=== PATIENT | female | born 2000 | race Caucasian/White ===

== ENCOUNTER → 2021-09-04 08:14 | Outpatient (BNVA) | payer BC, MEDICAID, SELFPAY | PROVIDERS: Family Provider Physician Assistant; PCP Nurse Practitioner; Visit Provider Nurse Practitioner Women's Health | DX: N92.6 Irregular menstruation, unspecified (principal) | CPT/HCPCS: 81025 ==

== ENCOUNTER → 2021-10-08 09:15 | Outpatient (BNVA) | payer BC, MEDICAID, SELFPAY | PROVIDERS: Family Provider Physician Assistant; PCP Nurse Practitioner; Visit Provider Obstetrics & Gynecology | DX: Z34.90 Encounter for supervision of normal pregnancy, unspecified, unspecified trimester (principal) | CPT/HCPCS: 80307; 81000; 82950; 83036; 84443; 85025; 86592; 86762; 86803; 86850; 86900; 87086; 87340; 87491; 87591; 87661; 88175 ==

== ENCOUNTER → 2021-11-01 14:12 | Outpatient (BNVA) | payer BC, MEDICAID, SELFPAY | PROVIDERS: Family Provider Physician Assistant; PCP Nurse Practitioner; Visit Provider Obstetrics & Gynecology | DX: O09.899 Supervision of other high risk pregnancies, unspecified trimester (principal); Z3A.00 Weeks of gestation of pregnancy not specified | CPT/HCPCS: 81000 ==

== ENCOUNTER 2021-11-02 14:49 | Emergency (ER) | payer BC, MEDICAID, SELFPAY ==
[2021-11-02 15:01] VITALS: BP 146/75; PULSE 121; RESP 20; TEMP 38.4; O2SAT 99; BMI 44.3
--- NOTE | 2021-11-02 15:30 | W.ED.ABDPA2 ---
HPI - Abdominal Pain General: Chief Complaint: Abdominal Pain Stated Complaint: fever Time Seen by Provider: 11/02/21 15:05 Source: patient Mode of arrival: ambulatory Limitations: no limitations History of Present Illness: 21-year-old female presents with right-sided flank pain. Patient is 16 to 17 weeks . No dysuria urgency or frequency. No hematuria no vomiting or diarrhea. Patient did present with a temp of 112 which resolved after she had been here for a time during the course of their work-up no respiratory symptoms. MD elicited complaint: flank pain (R) Pertinent past history: other (Currently 16 to 17 weeks ) Onset (ago): hour(s) Location: R flank Severity: severe Quality: cramping Exacerbating factors: nothing Relieving factors: nothing Associated Symptoms: Reports GI cramping; Denies anorexia, belching, bloating, change in bowel habits, change in stool character, chills, coffee ground emesis, constipation, diarrhea, dyspepsia, dysuria, excessive flatus, fever(s), heartburn, hematochezia, hematuria, hematemesis, fecal incontinence, loose stools, melena, nausea, poor appetite, syncope and vomiting Review of Systems Const: Denies: fever(s) or chills ENMT: Denies: throat pain, ear or mastoid pain, nasal discharge or nasal congestion Card: Denies: syncope Resp: Denies: dyspnea, productive cough or non-productive cough GI: Reports: GI cramping; Denies: abdominal pain, nausea, vomiting, hematemesis, coffee ground emesis, heartburn, diarrhea, constipation, bloating, belching, excessive flatus, fecal incontinence, change in bowel habits, change in stool character, hematochezia or melena : Reports: flank pain; Denies: difficulty voiding, dysuria, urinary frequency, urinary urgency or hematuria Skin/Breast: Denies: rash or pruritus PFSH ED PFSH: Medical History No pertinent past medical history neghx: htn,dm,thyroid,dvt/pe PCP: [place] Surgical History No pertinent past surgical history Family History Family/Other Diabetes Paternal Aunt x5 Thyroid disease Paternal Aunt x5 Father Hypertension Denies family history of Colon cancer Ovarian cancer Heart disease Hypercholesteremia Breast cancer Uterine cancer Stroke Physical Exam Const: GENERAL APPEARANCE: cooperative and comfortable ORIENTATION/CONSCIOUSNESS: Yes awake, Yes oriented to person, Yes oriented to place and Yes oriented to time HENMT: COMMON NORMALS: normocephalic, atraumatic and hearing grossly normal bilaterally HEAD & SCALP: normocephalic and atraumatic Resp: COMMON NORMALS: normal respiratory effort, No retractions, No use of accessory muscles and clear to auscultation bilaterally AUSCULTATION: clear to auscultation bilaterally Cardio: COMMON NORMALS: regular rate, regular rhythm and No murmurs present (Cardio) RATE: regular rate RHYTHM: regular rhythm GI: COMMON NORMALS: No hepatosplenomegaly present AUSCULTATION: Yes normoactive bowel sounds PALPATION: Yes Tenderness to palpation present (GI) (Right flank), No Guarding due to palpation present (GI) and Yes No hepatosplenomegaly present : BLADDER/KIDNEY EXAM: Yes CVA tenderness on the right Back/Pelvis: GENERAL BACK: Yes CVA tenderness Extremity: COMMON NORMALS: normal to inspection, capillary refill normal, no clubbing, cyanosis or edema, no calf tenderness and no pedal edema Neuro: SENSORIUM/ORIENTATION: Yes oriented to person, Yes oriented to place and Yes oriented to time Skin: COMMON NORMALS: no rashes or lesions noted GENERAL SKIN EXAM: no rashes or lesions noted Course Vital Signs: Vital signs: Vital Signs Temperature 98.6 F 11/02/21 18:35 Pulse Rate 107 H 11/02/21 18:35 Respiratory Rate 18 11/02/21 18:35 Blood Pressure 129/73 11/02/21 18:35 Pulse Oximetry 100 11/02/21 18:35 MDM - Abdominal Pain Medical Decision Making Discussed with Dr. Casiano. Cultures done we will start on amoxicillin follow-up with Dr. Casiano in the next 1 to 2 days if symptoms worsen or change return to the emergency room. Medical Records I reviewed the patient's medical records. Lab Data I reviewed the patient's lab results. : 11/02/21 15:55 11/02/21 15:55 Labs/Radiology: Radiology Impressions Obstetrics Ultrasound 11/02/21 15:45 IMPRESSION: 1. Single viable intrauterine gestation with an estimated age of 17 weeks 1 day. Abdomen Ultrasound 11/02/21 16:25 IMPRESSION: 1. Mild hepatomegaly. 2. Borderline splenomegaly. Laboratory Results WBC 9.0 10^3/uL (4.0-10.0) 11/02/21 15:55 RBC 4.01 10^6/uL (4.1-5.3) L 11/02/21 15:55 Hgb 11.5 g/dL (11.5-15.3) 11/02/21 15:55 Hct 33.7 % (37.0-47.0) L 11/02/21 15:55 MCV 84.0 fl (81-99) 11/02/21 15:55 MCH 28.7 pg (28.0-34.0) 11/02/21 15:55 MCHC 34.1 g/dL (30.0-36.0) 11/02/21 15:55 RDW 13.4 % (12.1-15.1) 11/02/21 15:55 Plt Count 236 10^3/cmm (130-400) 11/02/21 15:55 MPV 10.7 fL (7.4-10.4) H 11/02/21 15:55 Neut % (Auto) 84.8 % 11/02/21 15:55 Lymph % (Auto) 4.2 % 11/02/21 15:55 Lamb % (Auto) 10.5 % 11/02/21 15:55 Eos % (Auto) 0.0 % 11/02/21 15:55 Baso % (Auto) 0.2 % 11/02/21 15:55 Neut # (Auto) 7.65 10^3/uL (1.8-7.7) 11/02/21 15:55 Lymph # (Auto) 0.4 10^3/uL (0.8-4.8) L 11/02/21 15:55 Lamb # (Auto) 1.0 10^3/uL (0.2-0.9) H 11/02/21 15:55 Eos # (Auto) 0.0 10^3/uL (0.0-0.8) 11/02/21 15:55 Baso # (Auto) 0.0 10^3/uL (0.0-0.1) 11/02/21 15:55 Nucleated RBC % (auto) 0 % 11/02/21 15:55 Nucleated RBCs # 0.0 /100WBC 11/02/21 15:55 Sodium 135 mmol/L (136-145) L 11/02/21 15:55 Potassium 3.9 mmol/L (3.5-5.1) 11/02/21 15:55 Chloride 100 mmol/L (98-107) 11/02/21 15:55 Carbon Dioxide 21 mmol/L (22-29) L 11/02/21 15:55 Anion Gap 17.9 (5-19) 11/02/21 15:55 BUN 6 mg/dL (6-20) 11/02/21 15:55 Creatinine 0.5 mg/dL (0.5-0.9) 11/02/21 15:55 GFR Calculation 154.3 mL/min (90-130) H 11/02/21 15:55 Glucose 115 mg/dL (65-115) 11/02/21 15:55 Calculated Osmolality 279 mOsm/kg (285-295) L 11/02/21 15:55 Lactic Acid 0.8 mmol/L (0.5-2.2) 11/02/21 17:02 Calcium 9.5 mg/dL (8.5-10.5) 11/02/21 15:55 Total Bilirubin 0.2 mg/dL (0.15-1.2) 11/02/21 15:55 AST 21 U/L (0-32) 11/02/21 15:55 ALT 26 U/L (0-33) 11/02/21 15:55 Alkaline Phosphatase 62 IU/L (35-105) 11/02/21 15:55 Total Protein 7.0 g/dL (6.6-8.7) 11/02/21 15:55 Albumin 4.0 g/dL (3.5-5.2) 11/02/21 15:55 Globulin 3.0 g/dL (1.3-4.6) 11/02/21 15:55 Lipase 17 U/L (13-60) 11/02/21 15:55 Urine Color Yellow (Yellow) 11/02/21 15:55 Urine Appearance Clear (CLEAR) 11/02/21 15:55 Urine pH 7 (5-7) 11/02/21 15:55 Ur Specific [place] 1.010 (1.005-1.030) 11/02/21 15:55 Urine Protein Neg (Negative) 11/02/21 15:55 Urine Glucose (UA) Norm (Normal) 11/02/21 15:55 Urine Ketones Negative (Negative) 11/02/21 15:55 Urine Blood Neg (Negative) 11/02/21 15:55 Urine Nitrate Negative (Negative) 11/02/21 15:55 Urine Bilirubin Neg (Negative) 11/02/21 15:55 Urine Urobilinogen Norm mg/dL (Negative) 11/02/21 15:55 Ur Leukocyte Esterase Negative (Negative) 11/02/21 15:55 Coronavirus 229E (PCR) Not detected (NOT DETECT) 11/02/21 18:30 SARS-CoV-2 (PCR) Detected (NOT DETECT) A 11/02/21 18:30 Discharge Plan Discharge Patient Disposition: Home Clinical Impression: Fever Condition: Stable Prescriptions: New amoxicillin 875 mg tablet 875 mg PO BID Qty: 20 0RF No Action prenat.vits,calin,reo-cqgt-wugeb Tablet 1 tab PO DAILY 0RF (DME) lancets [Advanced Travel Lancets] 30 gauge misc See Rx Instructions .Route Qty: 120 0RF Rx Instructions: As directed (DME) Blood Glucose Test Strip See Rx Instructions .Route Qty: 120 0RF Rx Instructions: As directed (DME) blood-glucose meter [Blood Glucose Monitoring] Kit See Rx Instructions .Route Qty: 1 0RF Rx Instructions: As directed ondansetron HCl 4 mg tablet 4 mg PO Q6H PRN (Reason: nausea and vomiting) Qty: 30 2RF Discharge Orders: Discharge ED (Routine); Ordered 11/02/21 Ordered By: Luis Fernando Sotelo Referrals: Kanwal Casiano MD [Primary Care Provider] - Discharge Diet: Usual diet Discharge Activity: Resume usual activity Patient Instructions: Opioid Safety Activity Restrictions/Additional Instructions: Follow-up with Dr. Casiano early next week. If you have any difficulty or recurrent fever that does not resolve with acetaminophen return to emergency room. Coding Level of Care Code ED [employer] for Chg Fwd Exam Comprehensive
--- NOTE | 2021-11-02 15:45 | USR_ITS ---
PROCEDURE INFORMATION: Exam: US , Limited Exam date and time: 11/02/2021 4:37 PM Age: 21 years old Clinical indication: complicated by abdominal or pelvic pain; Generalized abdominal pain; Second trimester (14 weeks 0 days to 27 weeks 6 days); Gestational age or lmp: 16 w 4 d; ; Additional info: wellbeing TECHNIQUE: Imaging protocol: Real-time ultrasound of the maternal uterus with image documentation. Exam focused on the clinical indication. COMPARISON: US OB transvaginal CC 09/14/2021 3:54 PM FINDINGS: Gestation: Single intrauterine gestation. heart rate: 164 bpm. presentation: Variable presentation. Placenta: Anterior grade 0 placenta. BIOMETRY: Biparietal diameter (BPD): 3.49 cm, 16 weeks 5 days Head circumference (HC): 13.80 cm, 17 weeks 1 day Abdominal circumference (AC): 11.19 cm, 17 weeks 0 days Femur length (FL): 2.44 cm, 17 weeks 3 days MATERNAL: Cervix: The cervix appears closed measuring 4.5 cm in length. US/US OB limited [id number] IMPRESSION: 1. Single viable intrauterine gestation with an estimated age of 17 weeks 1 day.
[2021-11-02 16:04] LABS: Add Urine Microscopic? NO; Charge for UA Resulting for Rev
[2021-11-02 16:09] LABS: Basophils % 0.2 %; Hematocrit 33.7 % (37.0-47.0); Hemoglobin 11.5 g/dL (11.5-15.3); Lymphocytes # 0.4 10^3/uL (0.8-4.8); Lymphocytes % 4.2 %; Mean Corpuscular HGB Conc 34.1 g/dL (30.0-36.0); Mean Corpuscular Hemoglobin 28.7 pg (28.0-34.0); Mean Platelet Volume 10.7 fL (7.4-10.4); Monocytes % 10.5 %; Neutrophils # 7.65 10^3/uL (1.8-7.7); Neutrophils % 84.8 %; Nucleated Red Blood Cells % 0 %; Platelet Count 236 10^3/cmm (130-400); Red Blood Count 4.01 10^6/uL (4.1-5.3); Red Cell Distribution Width 13.4 % (12.1-15.1)
[2021-11-02 16:20] LABS: Glucose Urine UA Norm (Normal); Protein Urine Neg (Negative); Urine Appearance Clear (CLEAR); Urine Color Yellow (Yellow); pH Urine 7 (5-7)
[2021-11-02 16:21] LABS: Bilirubin Urine Neg (Negative); Blood Urine Neg (Negative); Ketones Urine Negative (Negative); Leukocyte Esterase Urine Negative (Negative); Nitrate Urine Negative (Negative); Urobilinogen Urine Norm (Negative)
--- NOTE | 2021-11-02 16:25 | USR_ITS ---
PROCEDURE INFORMATION: Exam: US Abdomen Complete Exam date and time: 11/02/2021 4:54 PM Age: 21 years old Clinical indication: Abdominal pain; ; Additional info: Abd pain, fever TECHNIQUE: Imaging protocol: Real-time ultrasound of the abdomen with image documentation. COMPARISON: US OB limited [id number] 11/02/2021 4:37 PM FINDINGS: Liver: The liver is of normal echogenicity measuring 17.0 cm in length. Gallbladder: Normal. No gallstones. There is no gallbladder wall thickening. Biliary ducts: Normal. No stones. No dilation. Pancreas: The pancreas is obscured by bowel gas. Right kidney: Normal. No mass. No hydronephrosis. Left kidney: Normal. No mass. No hydronephrosis. Spleen: The spleen is upper normal in size measuring 13.0 cm. Urinary bladder: The urinary bladder is of normal size and contour. Postvoid urinary bladder volume of 9 cc. Aorta: Normal. No aneurysm. Inferior vena cava: Normal. US/US abdomen complete* [id number] IMPRESSION: 1. Mild hepatomegaly. 2. Borderline splenomegaly.
[2021-11-02 16:31] LABS: Alanine Aminotransferase 26 U/L (0-33); Alkaline Phosphatase 62 IU/L (35-105); Anion Gap 17.9 (5-19); Aspartate Amino Transferase 21 U/L (0-32); Blood Urea Nitrogen 6 mg/dL (6-20); Calcium 9.5 mg/dL (8.5-10.5); Carbon Dioxide 21 mmol/L (22-29); Chloride 100 mmol/L (98-107); Glomerular Filtration Rate 154.3 mL/min (90-130); Glucose 115 mg/dL (65-115); Lipase 17 U/L (13-60); Osmolality Calculated 279 mOsm/kg (285-295); Potassium 3.9 mmol/L (3.5-5.1); Sodium 135 mmol/L (136-145); Total Bilirubin 0.2 mg/dL (0.15-1.2)
[2021-11-02] MEDS: ondansetron 2 mg/ML SDV 2 mL 4 MG IVP (17:08)
[2021-11-02] MEDS: sodium chloride 0.9% 1,000 ML 999 ML IV (17:08)
[2021-11-02 17:34] LABS: Lactic Sepsis W/Reflex 0.8 mmol/L (0.5-2.2)
[2021-11-02 17:52] VITALS: TEMP 37.1
[2021-11-02 18:35] VITALS: BP 129/73; PULSE 107; RESP 18; TEMP 37; O2SAT 100
[2021-11-02 20:35] LABS: Adenovirus Not Detected (NOT DETECT); Chlamydia Pneumoniae Not Detected (NOT DETECT); Coronavirus 229E,HKU1,NL63,OC4 Not Detected (NOT DETECT); Human Metapneumovirus Not Detected (NOT DETECT); Human Rhinovirus/Enterovirus Not Detected (NOT DETECT); Influenza A Not Detected (NOT DETECT); Influenza A H1 Not Detected (NOT DETECT); Influenza A H1-2009 Not Detected (NOT DETECT); Influenza A H3 Not Detected (NOT DETECT); Influenza B Not Detected (NOT DETECT); Mycoplasma Pneumoniae Not Detected (NOT DETECT); Parainfluenza Virus Type 1 Not Detected (NOT DETECT); Parainfluenza Virus Type 2 Not Detected (NOT DETECT); Parainfluenza Virus Type 3 Not Detected (NOT DETECT); Parainfluenza Virus Type 4 Not Detected (NOT DETECT); Respiratory Syncytial Virus A Not Detected (NOT DETECT); Respiratory Syncytial Virus B Not Detected (NOT DETECT); SARS-COV-2 Detected (NOT DETECT)
--- NOTE | 2021-11-03 09:05 | PC.NURSE ---
On 11/03/2021 at 0905 Nurse contacted patient to notify her of her positive COVID 19 results. Nurse ask patient if she had any question regarding her positive result while being and she stated No she was good . Patient stated she was feeling better.
--- NOTE | 2021-11-03 13:01 | PC.NURSE ---
This RN received critical result of 1 of 4 blood cultures gram + cocci in chains. This result reported to Dr. Sotelo, no orders received d/t probable contamination per Dr. Sotelo.
[2021-11-03 13:52] LABS: Bacillus cereus group Not Detected (NOT DETECT); Bacillus subtillis group Not Detected (NOT DETECT); Corynebacterium Not Detected (NOT DETECT); Cutibacterium acnes (P.acnes) Not Detected (NOT DETECT); Enterococcus Not Detected (NOT DETECT); Enterococcus faecalis Not Detected (NOT DETECT); Enterococcus faecium Not Detected (NOT DETECT); Lactobacillus species Not Detected (NOT DETECT); Listeria Not Detected (NOT DETECT); Listeria monocytogenes Not Detected (NOT DETECT); Micrococcus Not Detected (NOT DETECT); Pan Candida Not Detected (NOT DETECT); Pan Gram-Negative Not Detected (NOT DETECT); Staphylococcus epidermidis Not Detected (NOT DETECT); Staphylococcus lugdunensis Not Detected (NOT DETECT); Staphylococcus species Not Detected (NOT DETECT); Streptococcus agalactiae Not Detected (NOT DETECT); Streptococcus anginosus group Not Detected (NOT DETECT); Streptococcus pneumoniae Detected (NOT DETECT); Streptococcus pyogenes Not Detected (NOT DETECT); Streptococcus species Detected (NOT DETECT)
== END 2021-11-02 18:30 | disposition home or self-care (01) ==
PROVIDERS: Emergency Provider Family Medicine; PCP Obstetrics & Gynecology
DX: O99.891 Other specified diseases and conditions complicating pregnancy (principal); R50.9 Fever, unspecified; R10.9 Unspecified abdominal pain; Z3A.17 17 weeks gestation of pregnancy; Z20.822 Contact with and (suspected) exposure to COVID-19
CPT/HCPCS: 76700; 76815; 80053; 81003; 83605; 83690; 85025; 87040; 87150; 87186; 87205; 87635; 96361; 96374; 99284; J2405; J7030

== ENCOUNTER → 2021-11-15 13:35 | Outpatient (BNVA) | payer BC, MEDICAID, SELFPAY | PROVIDERS: PCP Obstetrics & Gynecology; Visit Provider Obstetrics & Gynecology | DX: O09.899 Supervision of other high risk pregnancies, unspecified trimester (principal); Z3A.00 Weeks of gestation of pregnancy not specified | CPT/HCPCS: 81000 ==

== ENCOUNTER → 2021-11-29 15:27 | Outpatient (BNVA) | payer BC, SELFPAY | PROVIDERS: PCP Obstetrics & Gynecology; Visit Provider Obstetrics & Gynecology | DX: O09.899 Supervision of other high risk pregnancies, unspecified trimester (principal); Z3A.00 Weeks of gestation of pregnancy not specified | CPT/HCPCS: 81000 ==

== ENCOUNTER 2021-12-11 08:10 | Outpatient (CLI) | payer BC, MEDICAID, SELFPAY ==
--- NOTE | 2021-12-11 08:30 | US_ITS ---
WS: [id number] OBSTETRICAL ULTRASOUND COMPLETE HISTORY: O09.899 - Supervision of other high risk pregnancies COMPARISON: 11/02/2020 09/14/2021 Single intrauterine gestation in Cephalic presentation. Cervix is Closed and normal length. Cervical length is 3.8 cm. Normal amount of amniotic fluid surrounds the fetus. Placenta: Anterior, no previa or abruption. Placenta grade 1 Heart: 153 BPM. Four chambers are identified. LEFT outflow tract is negative. The RIGHT outflow tract is more difficult to visualize. Anatomy: Intracranial structures and spine are normal. kidneys, stomach and urinary bladd er are unremarkable. Abdominal wall, three-vessel cord and cord insertion site are normal. 4 extremities are present. profile: Not visible. Gender: Male. measurements: BPD = 5.3 cm = 22w0d HC = 20.4 cm = 22w4d AC = 17.1 cm = 22w1d FL = 4.0 cm = 22w6d EFW: 501 g. Biometry is internally concordant. AGA by ultrasound: 22w4d BRIGITTE by ultrasound: 04/12/2022 US/US OB >= 14 weeks fetus [id number] IMPRESSION: 1. Single intrauterine gestation of 22w4d with an BRIGITTE of 04/12/2022. Appropria te growth since the first trimester ultrasound. 2. Obstetrical ultrasound is overall limited by patient's body habitus. No abn ormality is identified but poor visualization of the RIGHT ventricular outflow tract and the profile.
== END 2021-12-11 08:11 | disposition home or self-care (01) ==
LOC: RAD 08:11
PROVIDERS: Visit Provider Obstetrics & Gynecology
DX: O09.899 Supervision of other high risk pregnancies, unspecified trimester (principal); Z3A.22 22 weeks gestation of pregnancy
CPT/HCPCS: 76805

== ENCOUNTER → 2021-12-17 11:04 | Outpatient (BNVA) | payer BC, MEDICAID, SELFPAY | PROVIDERS: Visit Provider Obstetrics & Gynecology | DX: O09.899 Supervision of other high risk pregnancies, unspecified trimester (principal); Z3A.00 Weeks of gestation of pregnancy not specified | CPT/HCPCS: 81000 ==

== ENCOUNTER → 2022-01-21 08:43 | Outpatient (BNVA) | payer BC, MEDICAID, SELFPAY | PROVIDERS: Visit Provider Obstetrics & Gynecology | DX: O09.899 Supervision of other high risk pregnancies, unspecified trimester (principal); Z3A.00 Weeks of gestation of pregnancy not specified | CPT/HCPCS: 81000; 85025 ==

== ENCOUNTER → 2022-02-08 11:10 | Outpatient (BNVA) | payer BC, MEDICAID, SELFPAY | PROVIDERS: Visit Provider Obstetrics & Gynecology | DX: O09.899 Supervision of other high risk pregnancies, unspecified trimester (principal); Z3A.00 Weeks of gestation of pregnancy not specified | CPT/HCPCS: 81000; 87086 ==

== ENCOUNTER → 2022-02-18 15:12 | Outpatient (BNVA) | payer BC, MEDICAID, SELFPAY | PROVIDERS: Visit Provider Obstetrics & Gynecology | DX: O09.899 Supervision of other high risk pregnancies, unspecified trimester (principal); Z3A.00 Weeks of gestation of pregnancy not specified | CPT/HCPCS: 81000 ==

== ENCOUNTER 2022-02-25 09:40 | Outpatient (CLI) | payer BC, MEDICAID, SELFPAY ==
[2022-02-25 09:48] VITALS: BP 136/63; PULSE 97
[2022-02-25 10:05] VITALS: BMI 45.6
[2022-02-25 10:19] VITALS: BP 115/55; PULSE 82
[2022-02-25 10:24] VITALS: BP 117/58; PULSE 81
== END 2022-02-25 10:26 | disposition home or self-care (01) ==
LOC: OPOB 09:44 → OBGYN 09:45
PROVIDERS: Visit Provider Obstetrics & Gynecology
DX: O26.899 Other specified pregnancy related conditions, unspecified trimester (principal); Z3A.00 Weeks of gestation of pregnancy not specified
CPT/HCPCS: 59025; 81000; 99211

== ENCOUNTER 2022-03-03 15:40 | Outpatient (CLI) | payer BC, MEDICAID, SELFPAY ==
[2022-03-03] VITALS (8 sets, daily range): BP systolic 124–145; BP diastolic 57–78; PULSE 82–96; RESP 18; TEMP 36.7; BMI 46.0
[2022-03-03 16:48] LABS: Basophils % 0.2 %; Eosinophils # 0.2 10^3/uL (0.0-0.8); Eosinophils % 1.1 %; Hematocrit 40.6 % (37.0-47.0); Hemoglobin 13.4 g/dL (11.5-15.3); Lymphocytes # 2.9 10^3/uL (0.8-4.8); Lymphocytes % 16.3 %; Mean Corpuscular Hemoglobin 28.6 pg (28.0-34.0); Mean Corpuscular Volume 86.8 fl (81-99); Mean Platelet Volume 11.4 fL (7.4-10.4); Monocytes # 0.9 10^3/uL (0.2-0.9); Monocytes % 4.8 %; Neutrophils # 13.74 10^3/uL (1.8-7.7); Neutrophils % 77.1 %; Nucleated Red Blood Cells % 0 %; Platelet Count 326 10^3/cmm (130-400); Red Blood Count 4.68 10^6/uL (4.1-5.3); Red Cell Distribution Width 13.5 % (12.1-15.1); White Blood Count 17.8 10^3/uL (4.0-10.0)
[2022-03-03 16:50] LABS: Bilirubin Urine Negative (Negative); Blood Urine Negative (Negative); Glucose Urine UA Negative (Normal); Ketones Urine Negative (Negative); Leukocyte Esterase Urine Negative (Negative); Nitrate Urine Negative; Protein Urine Negative (Negative); Specific Gravity, Urine 1.025 (1.005-1.030); Urine Appearance Cloudy (CLEAR); Urine Color Yellow (Yellow); Urobilinogen Urine 0.2 mg/dL (Negative)
[2022-03-03 16:56] LABS: Add Urine Microscopic? YES; Amorphous Sediment Urine 3+ /hpf; Bacteria Urine TRACE /hpf; WBC Urine RARE /hpf (0-5)
[2022-03-03 16:57] LABS: Add Urine Culture? No
[2022-03-03 17:09] LABS: Alanine Aminotransferase 16 U/L (0-33); Alkaline Phosphatase 124 U/L (35-105); Anion Gap 18.1 (5-19); Aspartate Amino Transferase 15 U/L (0-32); Blood Urea Nitrogen 7 mg/dL (6-20); Calcium 10.3 mg/dL (8.5-10.5); Carbon Dioxide 20 mmol/L (22-29); Chloride 103 mmol/L (98-107); Glomerular Filtration Rate 152.9 mL/min (90-130); Glucose 80 mg/dL (65-115); Osmolality Calculated 281 mOsm/kg (285-295); Potassium 4.1 mmol/L (3.5-5.1); Sodium 137 mmol/L (136-145); Total Bilirubin 0.2 mg/dL (0.15-1.2); Uric Acid 4.3 mg/dL (2.4-5.7)
[2022-03-03 17:18] LABS: Urine Creatinine 76 mg/dL (28-217); Urine Protein Random 9 mg/dL
[2022-03-03 17:25] LABS: UPRO/UCREAT Ratio 0.12 mg/mg CR
== END 2022-03-03 17:35 | disposition home or self-care (01) ==
LOC: OPOB 15:46 → OBGYN 15:47
PROVIDERS: Visit Provider Obstetrics & Gynecology
DX: O36.8190 Decreased fetal movements, unspecified trimester, not applicable or unspecified (principal); Z3A.00 Weeks of gestation of pregnancy not specified
CPT/HCPCS: 36415; 59025; 80053; 81001; 82570; 84156; 84550; 85025; 99211

== ENCOUNTER → 2022-03-04 14:35 | Outpatient (BNVA) | payer BC, MEDICAID, SELFPAY | PROVIDERS: Visit Provider Obstetrics & Gynecology | DX: O09.899 Supervision of other high risk pregnancies, unspecified trimester (principal); Z3A.00 Weeks of gestation of pregnancy not specified | CPT/HCPCS: 81000 ==

== ENCOUNTER → 2022-03-14 08:38 | Outpatient (BNVA) | payer BC, MEDICAID, SELFPAY | PROVIDERS: Visit Provider Obstetrics & Gynecology | DX: O09.899 Supervision of other high risk pregnancies, unspecified trimester (principal); O24.419 Gestational diabetes mellitus in pregnancy, unspecified control; Z3A.00 Weeks of gestation of pregnancy not specified | CPT/HCPCS: 81000; 85025 ==

== ENCOUNTER → 2022-03-21 10:15 | Outpatient (BNVA) | payer BC, MEDICAID, SELFPAY | PROVIDERS: Visit Provider Obstetrics & Gynecology | DX: O09.899 Supervision of other high risk pregnancies, unspecified trimester (principal); O24.419 Gestational diabetes mellitus in pregnancy, unspecified control; Z3A.00 Weeks of gestation of pregnancy not specified | CPT/HCPCS: 81000; 87081 ==

== ENCOUNTER 2022-03-25 11:42 | Inpatient (IN) | payer BC, MEDICAID, SELFPAY ==
[2022-03-25] VITALS (30 sets, daily range): BP systolic 116–162; BP diastolic 55–106; PULSE 73–109; RESP 16–18; TEMP 36.4–37.1; BMI 47.0
[2022-03-25 10:29] LABS: Actim Prom Negative
[2022-03-25 10:31] LABS: Basophils # 0.1 10^3/uL (0.0-0.1); Basophils % 0.5 %; Eosinophils # 0.3 10^3/uL (0.0-0.8); Eosinophils % 1.5 %; Hemoglobin 13.4 g/dL (11.5-15.3); Lymphocytes # 3.1 10^3/uL (0.8-4.8); Lymphocytes % 18.6 %; Mean Corpuscular HGB Conc 34.4 g/dL (30.0-36.0); Mean Corpuscular Volume 84.4 fl (81-99); Mean Platelet Volume 11.7 fL (7.4-10.4); Monocytes # 0.9 10^3/uL (0.2-0.9); Monocytes % 5.3 %; Neutrophils # 12.34 10^3/uL (1.8-7.7); Neutrophils % 73.6 %; Nucleated Red Blood Cells % 0 %; Platelet Count 316 10^3/cmm (130-400); Red Blood Count 4.62 10^6/uL (4.1-5.3); Red Cell Distribution Width 13.8 % (12.1-15.1); White Blood Count 16.8 10^3/uL (4.0-10.0)
[2022-03-25] MEDS: miSOPROStol 100 mcg tablet 25 MCG VAGINAL ×3 (11:15→19:36)
[2022-03-25 11:27] LABS: Amphetamines Screen Urine Negative (Negative); Barbiturates Screen Urine Negative (Negative); Benzodiazepines Screen Urine Negative (Negative); Cocaine Screen Urine Negative (Negative); Opiate Screen Urine Negative (Negative); PCP Screen Urine Negative (Negative); THC Screen Urine Positive (Negative)
--- NOTE | 2022-03-25 11:43 | P.HP_ITS ---
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 She was sent over for admission for induction of her labor. Present Details : 2 Para: 0 Abnormal OB US findings: oligohydramnios Obstetrical complications: gestational diabetes and other (morbid obesity) L&D/Induction Specific History Indication for induction OB: nonreassuring APT and other (oligohydramnios, GDM) Planned induction method: per misoprostol protocol Review of Systems Const: Reports: fatigue and change in sleep pattern Card: Reports: dyspnea on exertion Resp: Reports: dyspnea (with exertion) GI: Reports: nausea : Reports: difficulty voiding Medications/Allergies Home Medications Medication Instructions Recorded Confirmed Last Taken Type prenat.vits,calin,chu-tcdt-ogmlg 1 tab PO DAILY 09/04/21 03/21/22 11/01/21 History ondansetron HCl 4 mg tablet 4 mg PO Q6H PRN nausea and 10/09/21 03/21/22 11/02/21 Rx vomiting #30 tabs blood-glucose meter (Blood Glucose #1 ea 11/01/21 03/21/22 Unknown Rx Monitoring kit) blood sugar diagnostic (Blood #120 ea 11/26/21 03/21/22 Unknown Rx Glucose Test strips) lancets 30 gauge (Advanced Travel #120 ea 11/26/21 03/21/22 Unknown Rx Lancets) pen needle, diabetic 31 gauge x #100 ea 02/08/22 03/21/22 Unknown Rx 1/4 (Lite Touch Insulin Pen [place]) insulin NPH isoph U-100 human 100 30 unit SUBCUT .qhs 03/25/22 03/25/22 03/24/22 22:00 History unit/mL subcutaneous suspension (Novolin N NPH U-100 Insulin isophane) insulin NPH isoph U-100 human 100 60 unit SUBCUT QAM 03/25/22 03/25/22 03/25/22 08:00 History unit/mL subcutaneous suspension (Novolin N NPH U-100 Insulin isophane) insulin regular human 100 unit/mL 20 - 22 unit SUBCUT BID 03/25/22 03/25/22 03/25/22 08:00 History injection solution (Humulin R 20 Regular U-100 Insulin) Allergies Allergy/AdvReac Type Severity Reaction Status Date / Time Penicillins Allergy Unknown Verified 03/21/22 10:24 PFSH ROLLER SKATES ASSEMBLER PFSH: Medical History No pertinent past medical history neghx: htn,dm,thyroid,dvt/pe [facility]CP: [facility] Surgical History No pertinent past surgical history Family History Family/Other Diabetes Paternal Aunt x5 Thyroid disease Paternal Aunt x5 Father Hypertension Denies family history of Colon cancer Ovarian cancer Heart disease Hypercholesteremia Breast cancer Uterine cancer Stroke Social History Smoking and tobacco status: never smoked Dietary Habits: Current diet type/program: diabetic Safety: Seatbelt use: always Personal Safety: Do you feel safe at home: Yes History History History 2 Term 0 0 Miscarriages/Ectopic 1 Living Children 0 Other History: sab 1st trimested G1 no d&c, not confirmed Care BRIGITTE Calculator Estimated Delivery Date Method Current WG Current Estimate 04/15/22 LMP (Certain) 37w 0d Other Estimates 04/13/22 Ultrasound #1 37w 2d Vitals/I&O/Wt Last Vital Signs Pulse 86 03/25/22 11:37 Resp 16 03/25/22 10:10 BP 135/61 03/25/22 11:37 Weight last 48 hrs Weight 347 lb Physical Exam Const: COMMON NORMALS: no acute distress, patient oriented x3, healthy appearing and alert OTHER: morbidly obese HENMT: COMMON NORMALS: normocephalic, atraumatic, hearing grossly normal bilaterally, external ears normal, Normal external nose present and moist oral mucous membranes Eye: COMMON NORMALS: conjunctivae normal and no scleral icterus Neck/C-Spine: COMMON NORMALS: full ROM, supple, no JVD and Thyroid normal Chest: COMMONS NORMALS: normal inspection of the chest Resp: COMMON NORMALS: normal respiratory effort, No retractions and No use of accessory muscles Cardio: COMMON NORMALS: no JVD, regular rate and Peripheral pulses 2+ throughout GI: COMMON NORMALS: Soft to palpation and non-tender : OTHER: SVE per nursing closed/thick and high, membranes intact,vtx Back/Pelvis: COMMON NORMALS: no CVA tenderness Extremity: COMMON NORMALS: normal to inspection, capillary refill normal and no calf tenderness OTHER: mild le edema bilaterally Neuro: COMMON NORMALS: patient oriented x3, moves all extremities, no focal motor deficits, no sensory deficits noted and gait normal Psych: COMMON NORMALS: mental status grossly normal, Normal thought process present, cooperative, normal affect and speech normal Skin: COMMON NORMALS: no rashes or lesions noted and turgor normal Data : 03/25/22 10:00 A&P Assessment and plan (1) Gestational diabetes: (2) Anxiety: (3) Morbid obesity: (4) Supervision of other high risk , antepartum: (5) Oligohydramnios in third trimester: Plan admit cytotec, consent obtained monitering per protocol, currently baseline 130s with cat 1 tracing carb control diet and regular insulin dosing as managed prior to admit until active labor with fbs and 1 hr pp bs hold pm nph dose Attestations Medical Necessity Statement*: admitted for induction of labor at 37 weeks gestation complicated by gdm on insulin and oligohydramnios and morbid obesity Time Spent in Patient Care: 16 - 35 minutes Coding Level of Care Code Acute Through Freight Engineer for Chg Fwd History Problem Focused Exam Problem Focused Medical Decision Making Straight Forward Diagnoses Gestational diabetes O24.419 Anxiety F41.9 Morbid obesity E66.01 Supervision of other high risk , antepartum O09.899 Oligohydramnios in third trimester O41.03X0 Time Spent (min) 35
[2022-03-25 15:24] LABS: Glucose Point of Care 95 mg/dL (70-110)
--- NOTE | 2022-03-25 18:20 | PM.OPHPUD ---
Labor & Delivery H&P Update Date of Procedure: March 26, 2022 Date H&P Performed: 03/21/22 H&P update information: I have reviewed H&P completed within last 30 days, I have examined patient prior to procedure and No changes to prior documentation Admission Diagnosis:
[2022-03-25 19:20] LABS: Glucose Point of Care 118 mg/dL (70-110)
[2022-03-25] MEDS: lactated ringers 1,000 ML 999 ML IV (20:57)
[2022-03-25] MEDS: lactated ringers 1,000 ML 125 ML IV (22:05)
[2022-03-25 23:30] LABS: Glucose Point of Care 106 mg/dL (70-110)
[2022-03-26] VITALS (36 sets, daily range): BP systolic 107–154; BP diastolic 53–102; PULSE 75–100; RESP 16–18; TEMP 35.9–36.3
[2022-03-26] MEDS: miSOPROStol 100 mcg tablet 25 MCG VAGINAL ×3 (00:45→21:06)
[2022-03-26 04:24] LABS: Glucose Point of Care 111 mg/dL (70-110)
[2022-03-26] MEDS: insulin regular-human 20 UNIT in SYRINGE 1 EACH SUBCUT (08:53)
[2022-03-26 09:07] LABS: Glucose Point of Care 103 mg/dL (70-110)
[2022-03-26 11:26] LABS: Glucose Point of Care 102 mg/dL (70-110)
[2022-03-26 16:32] LABS: Glucose Point of Care 79 mg/dL (70-110)
[2022-03-26 19:26] LABS: Glucose Point of Care 94 mg/dL (70-110)
[2022-03-26 21:51] LABS: Glucose Point of Care 163 mg/dL (70-110)
[2022-03-26 23:39] LABS: Glucose Point of Care 108 mg/dL (70-110)
[2022-03-27] VITALS (28 sets, daily range): BP systolic 112–142; BP diastolic 56–84; PULSE 56–93; RESP 17; TEMP 36–36.7
[2022-03-27] MEDS: miSOPROStol 100 mcg tablet 25 MCG VAGINAL ×3 (01:03→10:08)
[2022-03-27 03:33] LABS: Glucose Point of Care 99 mg/dL (70-110)
[2022-03-27] MEDS: ondansetron 2 mg/ML SDV 2 mL 4 MG IVP (06:55)
[2022-03-27 07:39] LABS: Glucose Point of Care 107 mg/dL (70-110)
--- NOTE | 2022-03-27 09:19 | PM.PN ---
Subjective Subjective: The patient received pitocin all day yesterday. She was allowed to eat dinner and then cytotec was placed overnight. This morning, she has started to have a little bloody show. Vitals/I&O/Wt Last Vital Signs Temp 96.8 F L 03/27/22 09:02 Pulse 83 03/27/22 09:03 Resp 16 03/26/22 15:15 BP 130/75 03/27/22 09:03 O2 Del Method 03/25/22 10:22 03/26/22 03/27/22 03/27/22 22:59 06:59 14:59 Intake Total 81.053 / 111.253 Balance 81.053 / 111.253 Weight last 48 hrs Weight 347 lb Physical Exam Narrative: The patient is in good spirits and doing well. No concerns Const: COMMON NORMALS: no acute distress, patient oriented x3, no limitations, healthy appearing, alert and well nourished GENERAL APPEARANCE: cooperative, comfortable, well kempt and well developed ORIENTATION/CONSCIOUSNESS: Yes awake, Yes oriented to person, Yes oriented to place and Yes oriented to time Resp: COMMON NORMALS: normal respiratory effort EFFORT & INSPECTION: Yes able to speak in complete sentences Extremity: COMMON NORMALS: no calf tenderness Neuro: COMMON NORMALS: patient oriented x3 SENSORIUM/ORIENTATION: Yes alert, Yes oriented to person, Yes oriented to place and Yes oriented to time Psych: APPEARANCE: Yes well kempt Data : 03/25/22 10:00 A&P Assessment and plan (1) Oligohydramnios in third trimester: plan to continue with induction possibly 1 additional cytotec, then switch to pitocin. status continues to be category 1 Attestations Medical Necessity Statement*: The patient has already been here two midnights. Coding Level of Care Code Acute Pediatrician Active Practice for Chg Fwd Diagnoses Oligohydramnios in third trimester O41.03X0
[2022-03-27 09:31] LABS: Glucose Point of Care 99 mg/dL (70-110)
[2022-03-27 13:39] LABS: Glucose Point of Care 90 mg/dL (70-110)
[2022-03-27] MEDS: lactated ringers 1,000 ML 125 ML IV (14:24)
[2022-03-27 17:31] LABS: Glucose Point of Care 88 mg/dL (70-110)
[2022-03-27 19:47] LABS: Glucose Point of Care 100 mg/dL (70-110)
[2022-03-27] MEDS: insulin lispro 100 unit/1 mL 11 UNIT SUBCUT (19:53)
[2022-03-27] MEDS: oxytocin 30 UNIT/500 ML BAG IV (21:35)
[2022-03-27 23:55] LABS: Glucose Point of Care 160 mg/dL (70-110)
[2022-03-28] VITALS (105 sets, daily range): BP systolic 108–192; BP diastolic 53–105; PULSE 65–121; RESP 16–20; TEMP 30–37.1; O2SAT 86–100
[2022-03-28] MEDS: insulin lispro 100 unit/1 mL SUBCUT (00:18)
[2022-03-28] MEDS: lactated ringers 1,000 ML 125 ML IV ×3 (02:27→22:21)
[2022-03-28 03:56] LABS: Glucose Point of Care 87 mg/dL (70-110)
--- NOTE | 2022-03-28 07:31 | P.PN_ITS ---
Subjective Subjective: The patient received 3 additional doses of cytotec yesterday. She was allowed to eat dinner and shower and then pitocin was started. She achieved a max dose of 20 mU. She is beginning to have some pain and has had a little bloody show. At last check, her cervix was unchanged /-3 Vitals/I&O/Wt Last Vital Signs Temp 97.4 F L 03/28/22 13:31 Pulse 97 03/28/22 15:19 Resp 18 03/28/22 14:32 BP 153/70 03/28/22 15:05 Pulse Ox 99 03/28/22 15:19 O2 Del Method 03/25/22 10:22 03/28/22 03/28/22 03/28/22 06:59 14:59 22:59 Intake Total 44.217 / 327.412 5068.083 / 1320.083 12.967 / 1333.050 Output Total 350 / 350 Balance 44.217 / 917.986 5102.083 / 1320.083 -337.033 / 983.050 Physical Exam Narrative: The patient is starting to have pain from her contractions. Const: COMMON NORMALS: no acute distress, patient oriented x3, no limitations, healthy appearing, alert and well nourished GENERAL APPEARANCE: cooperative, comfortable, well kempt and well developed ORIENTATION/CONSCIOUSNESS: Yes awake, Yes oriented to person, Yes oriented to place and Yes oriented to time Resp: COMMON NORMALS: normal respiratory effort EFFORT & INSPECTION: Yes able to speak in complete sentences GI: COMMON NORMALS: Soft to palpation and non-tender PALPATION: Yes Soft to palpation : MANUAL OB EXAM: dilated 4 cm, effaced (90%) and station -1 AMNIOTIC FLUID: clear (AROM, clear fluid) Extremity: COMMON NORMALS: no calf tenderness Neuro: COMMON NORMALS: patient oriented x3 SENSORIUM/ORIENTATION: Yes alert, Yes oriented to person, Yes oriented to place and Yes oriented to time Psych: APPEARANCE: Yes well kempt Data : 03/25/22 10:00 A&P Assessment and plan (1) Oligohydramnios in third trimester: AROM performed with clear fluid continue with pitocin induction anticipate (2) Gestational diabetes: blood sugars have been stable (3) Morbid obesity: (4) Supervision of other high risk , antepartum: Attestations Medical Necessity Statement*: The patient has already been here for 2 midnights. Coding Level of Care Code Acute Fence Manufacture Supervisor for Chg Fwd Diagnoses Oligohydramnios in third trimester O41.03X0 Gestational diabetes O24.419 Morbid obesity E66.01 Supervision of other high risk , antepartum O09.899
[2022-03-28 07:58] LABS: Glucose Point of Care 90 mg/dL (70-110)
[2022-03-28] MEDS: fentaNYL 50 mcg/mL INJ 2mL IVP ×8 (08:27→19:50)
[2022-03-28] MEDS: dextrose 5%-lactated ringers 1,000 ML 125 ML IV (10:47)
[2022-03-28 11:49] LABS: Glucose Point of Care 134 mg/dL (70-110)
[2022-03-28] MEDS: ondansetron 2 mg/ML SDV 2 mL 4 MG IVP (17:41)
[2022-03-28 18:41] LABS: Glucose Point of Care 110 mg/dL (70-110)
[2022-03-28] MEDS: lactated ringers 1,000 ML 999 ML IV (20:16)
--- NOTE | 2022-03-28 21:07 | ANES.PREANE2 ---
Pre-Anesthetic Assessment Height/Weight: Height 1.83 m Weight 157.397 kg Temp Pulse Resp BP Pulse Ox O2 Del Method 97.5 F L 77 16 147/65 100 03/28/22 21:04 03/28/22 21:03 03/28/22 19:50 03/28/22 20:50 03/28/22 21:03 03/25/22 10:22 Preop Diagnosis: IUP epidural Familial anesthetic complications: none Was Beta Edson taken within 24 hours: N/A Was Clonidine taken within 24 hours: N/A Last Intake: 00:00 Social No alcohol and No tobacco Exam alert and oriented x 3 Airway Submandibular: within normal limits Cervical ROM: within normal limits Mallampati: Class III Dentition: full History/ROS No significant history except as noted Pulmonary None reported CV/HEM None reported None reported Hepatic None reported GI None reported Metabolic Diabetes Mellitus (gestational only) Musc/skel None reported Neuropsych None reported Anesthetic Plan ASA status: 3 Anesthesia: Anesthesia Evaluation and Regional (specify below) Risk of > 500 ml blood loss (7ml/kg in children): No Medications/Allergies Home Medications Medication Instructions Recorded Confirmed Last Taken Type prenat.vits,calin,zka-zrlf-ecjqj 1 tab PO DAILY 09/04/21 03/25/22 11/01/21 History ondansetron HCl 4 mg tablet 4 mg PO Q6H PRN nausea and 10/09/21 03/25/22 11/02/21 Rx vomiting #30 tabs blood-glucose meter (Blood Glucose #1 ea 11/01/21 03/21/22 Unknown Rx Monitoring kit) blood sugar diagnostic (Blood #120 ea 11/26/21 03/21/22 Unknown Rx Glucose Test strips) lancets 30 gauge (Advanced Travel #120 ea 11/26/21 03/21/22 Unknown Rx Lancets) pen needle, diabetic 31 gauge x #100 ea 02/08/22 03/21/22 Unknown Rx 1/4 (Lite Touch Insulin Pen [place]) insulin NPH isoph U-100 human 100 30 unit SUBCUT .q 03/25/22 03/25/22 03/24/22 22:00 History unit/mL subcutaneous suspension (Novolin N NPH U-100 Insulin isophane) insulin NPH isoph U-100 human 100 60 unit SUBCUT QA 03/25/22 03/25/22 03/25/22 08:00 History unit/mL subcutaneous suspension (Novolin N NPH U-100 Insulin isophane) insulin regular human 100 unit/mL 20 - 22 unit SUBCUT BID 03/25/22 03/25/22 03/25/22 08:00 History injection solution (Humulin R 20 Regular U-100 Insulin) Allergies Allergy/AdvReac Type Severity Reaction Status Date / Time Penicillins Allergy Unknown Verified 03/21/22 10:24 Current Medications Generic Name Dose Route Start Last Admin Trade Name Freq PRN Reason Stop Dose Admin Fentanyl 25 - 100 mcg 03/25/22 10:10 03/28/22 19:50 Fentanyl 50 Mcg/Ml Inj 2ml IVP 100 mcg Q1H PRN Administration SEVERE PAIN Lactated Ringer's 1,000 mls @ 999 mls/hr 03/25/22 10:10 03/28/22 12:00 Lactated Ringers IV 125 mls/hr .Q1H1M PRN Administration BLEEDING Lactated Ringer's 1,000 mls @ 999 mls/hr 03/25/22 10:10 03/28/22 10:30 Lactated Ringers IV Infused .Q1H1M PRN Infusion Per L&D Rescitation Protocol Dextrose/Lactated Ringer's 1,000 mls @ 125 mls/hr 03/25/22 10:15 03/28/22 12:00 Dextrose 5%-Lactated Ringers IV 0 mls/hr .Q8H [place] Infusion Insulin Human Regular 20 unit/ 0.2 mls @ 0 mls/hr 03/26/22 07:00 03/28/22 09:13 N/A SUBCUT Not Given ACBREAKFAST [place] Insulin Human Regular 22 unit/ 0.22 mls @ 0 mls/hr 03/25/22 17:15 03/28/22 18:44 N/A SUBCUT Not Given ACSUPPER [place]KA Oxytocin 30 unit in 500 mls @ 1 mls/hr 03/26/22 10:00 03/28/22 18:30 Pitocin IV 10 milliunit/min .Q24H [place] 10 mls/hr Titration Protocol 1 MILLIUNIT/MIN Lactated Ringer's 1,000 mls @ 999 mls/hr 03/28/22 20:16 03/28/22 20:16 Lactated Ringers IV 999 mls/hr .Q1H1M PRN Administration See label comments Insulin Human Lispro 0 unit 03/25/22 19:45 03/28/22 00:18 Insulin Lispro 100 Unit/1 Ml SUBCUT 6 unit DIRECTED [place] Administration Protocol Ondansetron HCl 4 mg 03/25/22 10:10 03/28/22 17:41 Ondansetron 2 Mg/Ml Sdv 2 Ml IVP 4 mg Q4H PRN Administration NAUSEA AND VOMITING PFSH Anesthesia Medical History No pertinent past medical history neghx: htn,dm,thyroid,dvt/pe PCP: [facility] Surgical History No pertinent past surgical history Family History Family/Other Diabetes Paternal Aunt x5 Thyroid disease Paternal Aunt x5 Father Hypertension Denies family history of Colon cancer Ovarian cancer Heart disease Hypercholesteremia Breast cancer Uterine cancer Stroke Social History Smoking and tobacco status: never smoked Female Reproductive History : 2 Data Anesthesia : 03/25/22 10:00 Cardiac Studies: No Data to Display
--- NOTE | 2022-03-28 21:24 | ANES.PROC ---
Anesthesia Procedures Procedure/Date: 03/28/22 epidural Epidural: Time Out Performed: Yes Consents Signed: Procedure Consent Consent: from patient, risks and benefits reviewed and patient agrees to proceed Lumbar Level: L3-L4 Epidural position: sitting Epidural procedure: sterile prep of area, 1% lidocaine to numb the area, 18 g needle, negative for paresthesia passed, test dose given, 1.5% xylocaine 1:200k epi, placed PCEA, no systemic response, sterile dressing applied, L.U.D. no apparent complications and 0.2% Ropiavacaine @ mls/hr (13) Additional Comments: NICOLE at 8, taped at 15 at skin
[2022-03-29] VITALS (20 sets, daily range): BP systolic 107–168; BP diastolic 62–97; PULSE 84–126; RESP 17; TEMP 36.7; O2SAT 95–99
--- NOTE | 2022-03-29 00:09 | PM.DELIVERY ---
Delivery Note: Date of delivery: March 29, 2022 Pre-Delivery Course: Pt has not progressed over 6 hrs after cx noted to be 8cm. Position palpates persistant OP. Pt request to proceed with c/section. Anesthesia called and Operative staff being notified. History History History 2 Term 0 0 Miscarriages/Ectopic 1 Living Children 0 Coding Level of Care Code Acute Boxing And Pressing Supervisor for Adam Cid
[2022-03-29] MEDS: famotidine 20 mg/2 mL INJ IVP (00:15)
[2022-03-29] MEDS: citric acid-sodium citrate 30 mL UDC PO (00:15)
[2022-03-29] MEDS: metoclopramide 5 mg/mL SDV 2 mL 10 MG IVP (00:16)
[2022-03-29] MEDS: ceFAZolin 2,000 MG in sodium chloride 0.9% (plus) 50 ML 100 MG IV ×2 (00:33→14:21)
[2022-03-29] MEDS: methylergonovine 0.2 mg/mL INJ 1 mL IM (01:37)
--- NOTE | 2022-03-29 01:48 | P.OP_ITS ---
Operative Report Date of procedure: March 29, 2022 Pre-op diagnosis: Preop Diagnosis IUP 37.4 wk IUP GDM Failure to Progress Persistant OP presentation Post-op diagnosis: Viable male 9/9 Wt-9#2 Uterine Atony Procedure done: Primary LTCS Specimens removed/disposition: Placenta Surgeon: Autumn Gleason DO Anesthesia: General Estimated blood loss: EBL 1000cc Urine output: 800cc Complications: none Condition: stable Brief History: 22yo C. female at 37.4 wk IUP admitted for Induction of labor d/t Oligohydramnious. Multiple treatments for cervical ripening. Pitocin induction followed, pt progressed to 8cm and was allowed to continue laboring even though protracted course since monitoring was reassuring. After receiving epidural pt jos not get relief and during dicussion regarding no progression she requested to proceed with C/S. Risk and Benifits reviewed and pt consented for surgery. Procedure: Pt taken to surgical suite and prepared for surgery, skin testing for anesthesia level done and level inadequate for surgery, therfore pt given General Anest. Incision made 2 cm above pubic bone and extended to fascia. Several areas cauterized for hemostasis. The peritoneum entered bluntly and a bladder flap created and displaced ith bladder blade. A Low Transverse Uerine Incision was made and baby noted to be LOP presentation.The vertex delivered, followed by the anterior then posterior shoulders with remainder of the body to follow. Spontaneous cry noted, oral cavity suctioned. The umbilical cord was clamped after 2 delay and cut. Baby kenroy off to Nursing staff at warmer. Cord blood drawn, and handed off. The placenta was manually removed and handed off. The uterus exteriorized and wiped clean, and pitocin added to current iv bag and given via bolus. The uterus remained boggy so 20u more of Pitocin was added to the iv fluid. Metergine 0.2 mg given IM and the uterus firmed with message. The uterine incision closed with 0 vicryl with a 2 layered closure with good hemostasis. The posterior culdesac and side chaudhari cleared of clots. The uterus replaced in the abdomen and the peritoneum and rectus muscle approximated with 2.0 vicryl. The fascia closed with 0 vicryl, and the SubQ fat approximated with 2 vicryl. The skin closed with 4.0 vicryl. The uterus was me ssaged and vaginal vault cleared of moderte clots. Pressure bandage applied. Pt abdomen cleansed. Pt awaken in stable condition.
[2022-03-29] MEDS: dextrose 5%-lactated ringers 1,000 ML 125 ML IV (07:29)
--- NOTE | 2022-03-29 08:36 | ANE.PACU2 ---
Inpatient post-anesthesia follow up: Airway intact: Yes Vital signs: Temperature 98.1 F Pulse Rate 91 Respiratory Rate 18 Blood Pressure 107/64 Pulse Oximetry 95 Oxygen Delivery Me thod Room Air Oxygen Flow Rate Fraction of Inspir ed Oxygen Hydration adequate: Yes Nausea and vomiting: No Pain level: 2 Mental status: Baseline
--- NOTE | 2022-03-29 08:58 | PC.NURSE ---
This RN,IBCLC to bedside. Patient holding skin to skin in cradle hold attempting to latch infant. Encouraged patient to wake by repositioning him. Patient was able to rouse . This RN assisted mother in returning to latching position, noting belly to belly position and nipple to nose position. Requested permission from patient to assist with latching by hand over hand assist. Infant was noted to be rooting and opening mouth. was able to latch with flared lips, occasional suckling was noted. Patient stated that the latch was comfortable and that she could feel suckling. Education was provided on tenderness vs. pain. Encouraged to unlatch and relatch infant if latch is painful. Discussed that will come off the breast frequently as is learning a new skill. Discussed how long an average feed should be, 10-15 minutes of active suckling, how frequently should feed, every 2-3 hours. Education was provided on how to identify effective feeding. Hand expression was demonstrated for patient.
[2022-03-29] MEDS: ketorolac 30 mg/mL INJ IVP ×3 (11:46→22:36)
--- NOTE | 2022-03-29 17:38 | PM.OBGYPN ---
OUTPATIENT PHYSICAL THERAPIST Subjective Subjective: Interval history: POD 0 Primary C/S for failure to progress, Pt awake with family present, bonding well with baby, breast feeding. Denies nausea or vomiting, chest pain or SOB. Tolerating regular diet and has ambulated. Discussed postop expectations. Labor: Station: +1 Amniotic Membrane Status: Ruptured Monitor Mode: Internal (IUPC) Contraction Pattern: Regular Status: Category I Vitals/I&O/Wt Last Vital Signs Temp 98.1 F 03/28/22 23:52 Pulse 91 03/29/22 06:30 Resp 18 03/28/22 23:52 BP 107/64 03/29/22 06:30 Pulse Ox 95 03/29/22 06:30 O2 Del Method 03/29/22 06:30 03/29/22 03/29/22 03/29/22 06:59 14:59 22:59 Intake Total 315.417 / 3708.567 0 / 0 Output Total 1500 / 1850 Balance -1184.583 / 1858.567 0 / 0 Physical Exam Const: COMMON NORMALS: patient oriented x3 Neck/C-Spine: COMMON NORMALS: no JVD Cardio: COMMON NORMALS: no JVD, regular rate and regular rhythm RATE: regular rate RHYTHM: regular rhythm GI: INSPECTION: Yes normal to inspection (Incision clean, dry and intact, no redness or swelling, ) Extremity: NARRATIVE EXTREMITY EXAM: no edema, neg homans sign Neuro: COMMON NORMALS: patient oriented x3, CN's II-XII intact bilaterally, moves all extremities and deep tendon reflexes 2+ bilaterally Urinary Catheter Management: Manuel Latex: Cath Placed During This Visit: yes Reason for Continuing Indwelling Catheter: Perioperative Use in Selected Surgeries Urinary Catheter Date of Insertion: 03/28/22 Urinary Catheter Time of Insertion: 23:40 Data : 03/29/22 16:35 A&P Assessment and plan (1) Delivery by section: Plan POD# 0 S/P Primary C/Section at 37.4 wks GDM Oligohydramnious Obesity P. Will hold Insulin for now. Continue care. Attestations Medical Necessity Statement*: continue care Coding Level of Care Code Established Pt Acute Senior Design Engineering Specialist for Adam Fwd Patient Type Established History Problem Focused Exam Problem Focused Medical Decision Making Straight Forward Diagnoses Delivery by section
[2022-03-29] MEDS: docusate sodium 100 mg Capsule PO (18:14)
[2022-03-29 18:39] LABS: Hematocrit 27.6 % (37.0-47.0); Hemoglobin 9.4 g/dL (11.5-15.3); Mean Corpuscular HGB Conc 34.1 g/dL (30.0-36.0); Mean Corpuscular Volume 88.2 fl (81-99); Mean Platelet Volume 12.3 fL (7.4-10.4); Platelet Count 239 10^3/cmm (130-400); Red Blood Count 3.13 10^6/uL (4.1-5.3); Red Cell Distribution Width 14.2 % (12.1-15.1); White Blood Count 20.4 10^3/uL (4.0-10.0)
[2022-03-30 04:35] VITALS: BP 116/70; PULSE 103; RESP 17; TEMP 37.4
[2022-03-30] MEDS: docusate sodium 100 mg Capsule PO ×2 (09:42→18:10)
[2022-03-30] MEDS: ibuprofen 800 mg tablet PO ×2 (09:42→16:04)
[2022-03-30 09:43] VITALS: BP 116/62; PULSE 96; RESP 17; TEMP 36.8
--- NOTE | 2022-03-30 16:03 | PM.OBGYPN ---
EDGER RUNNER Subjective Subjective: Interval history: Pt doing well, no problems voiced, ambulating and tolerating regular diet. VSS, afebrile Vitals/I&O/Wt Last Vital Signs Temp 98.2 F 03/30/22 09:43 Pulse 96 03/30/22 09:43 Resp 17 03/30/22 09:43 BP 116/62 03/30/22 09:43 Pulse Ox 95 03/29/22 06:30 O2 Del Method 03/29/22 06:30 Physical Exam Const: COMMON NORMALS: no acute distress, patient oriented x3, healthy appearing, alert and well nourished GI: INSPECTION: Yes incision (intact, clean and dry.) Extremity: NARRATIVE EXTREMITY EXAM: no edema, neg homans sign Neuro: COMMON NORMALS: patient oriented x3 SENSORIUM/ORIENTATION: Yes alert Urinary Catheter Management: Manuel Latex: Cath Placed During This Visit: yes, but has since been removed by the nurse Reason for Continuing Indwelling Catheter: Perioperative Use in Selected Surgeries Urinary Catheter Date of Insertion: 03/28/22 Urinary Catheter Time of Insertion: 23:40 Date Urinary Catheter Removed: 03/29/22 Time Urinary Catheter Discontinued: 16:15 Data : 03/29/22 16:35 A&P Assessment and plan (1) Delivery by section: Plan POD# 0 S/P Primary C/Section at 37.4 wks GDM Oligohydramnious Obesity P. Will hold Insulin for now. Continue care. Attestations Medical Necessity Statement*: continue care, probable dc tomorrow. Coding Level of Care Code Acute Wash Oil Pump Operator Helper for Chg Fwd Diagnoses Delivery by section
[2022-03-30 16:07] VITALS: BP 114/68; PULSE 100; RESP 16; TEMP 36.7; O2SAT 99
[2022-03-30 20:24] VITALS: BP 128/83; PULSE 99; RESP 17; TEMP 36.6
[2022-03-31 04:06] VITALS: BP 120/63; PULSE 64; RESP 17
[2022-03-31] MEDS: docusate sodium 100 mg Capsule PO (09:03)
[2022-03-31] MEDS: ibuprofen 800 mg tablet PO ×2 (09:03→16:37)
[2022-03-31 10:00] VITALS: BP 114/60; PULSE 103; RESP 18; TEMP 36.9; O2SAT 98
--- NOTE | 2022-03-31 11:29 | PC.NURSE ---
Linens Bath linens given to pt for shower.
--- NOTE | 2022-03-31 12:58 | PM.OBGYDC ---
Discharge Providers THORACIC MEDICINE PHYSICIAN Date of Admission: 03/25/22 11:42 Date of Discharge: 03/31/22 Attending Provider at Admission: Kanwal Casiano MD Attending Provider at Discharge: Kanwal Casiano MD Diagnoses at Discharge Discharge Diagnosis (1) Delivery by section: Status: Acute Reason for Visit Reason for Visit: Induction of Labor for GDM/Oligo Hospital Course Hospital Course Pt doing well, no complaints, tolerating regular diet, ambulating, passing flatus.Denies LOPEZ, Chest pain or SOB, Pt breast feeding. VSS, afebrile. H-RRR Abd- soft, Incision clean,dry, and intact Ext- no edema,neg Homans. Lab H/H BS 102 Information Peripartum Data: Infant Delivery Method: Physical Exam Urinary Catheter Management: Manuel Latex: Cath Placed During This Visit: yes, but has since been removed by the nurse Reason for Continuing Indwelling Catheter: Perioperative Use in Selected Surgeries Urinary Catheter Date of Insertion: 03/28/22 Urinary Catheter Time of Insertion: 23:40 Date Urinary Catheter Removed: 03/29/22 Time Urinary Catheter Discontinued: 16:15 History History History 2 Term 0 0 Miscarriages/Ectopic 1 Living Children 0 Past Pregnancies Del. Date GA/Weeks Outcome Route Wt Inf Gender Labor Lgth Comp. Anesthesia Location 03/29/22 37 live - full term 4.139 kg Male Discharge Data Studies Completed and Pending Laboratory Results WBC 20.4 10^3/uL (4.0-10.0) H 03/29/22 16:35 RBC 3.13 10^6/uL (4.1-5.3) L 03/29/22 16:35 Hgb 9.4 g/dL (11.5-15.3) L 03/29/22 16:35 Hct 27.6 % (37.0-47.0) L 03/29/22 16:35 MCV 88.2 fl (81-99) 03/29/22 16:35 MCH 30.0 pg (28.0-34.0) 03/29/22 16:35 MCHC 34.1 g/dL (30.0-36.0) 03/29/22 16:35 RDW 14.2 % (12.1-15.1) 03/29/22 16:35 Plt Count 239 10^3/cmm (130-400) 03/29/22 16:35 MPV 12.3 fL (7.4-10.4) H 03/29/22 16:35 Neut % (Auto) 73.6 % 03/25/22 10:00 Lymph % (Auto) 18.6 % 03/25/22 10:00 [place] % (Auto) 5.3 % 03/25/22 10:00 Eos % (Auto) 1.5 % 03/25/22 10:00 Baso % (Auto) 0.5 % 03/25/22 10:00 Neut # (Auto) 12.34 10^3/uL (1.8-7.7) H 03/25/22 10:00 Lymph # (Auto) 3.1 10^3/uL (0.8-4.8) 03/25/22 10:00 [place] # (Auto) 0.9 10^3/uL (0.2-0.9) 03/25/22 10:00 Eos # (Auto) 0.3 10^3/uL (0.0-0.8) 03/25/22 10:00 Baso # (Auto) 0.1 10^3/uL (0.0-0.1) 03/25/22 10:00 Nucleated RBC % (auto) 0 % 03/25/22 10:00 Nucleated RBCs # 0.0 /100WBC 03/25/22 10:00 POC Glucose 110 mg/dL (70-110) 03/28/22 18:35 Insulin-like GF I Negative 03/25/22 10:00 Urine Opiates Screen Negative ng/mL (Negative) 03/25/22 10:00 Ur Barbiturates Screen Negative ng/mL (Negative) 03/25/22 10:00 Ur Phencyclidine Scrn Negative ng/mL (Negative) 03/25/22 10:00 Ur Amphetamines Screen Negative ng/mL (Negative) 03/25/22 10:00 U Benzodiazepines Scrn Negative ng/mL (Negative) 03/25/22 10:00 Urine Cocaine Screen Negative ng/mL (Negative) 03/25/22 10:00 U Marijuana (THC) Screen Positive ng/mL (Negative) H 03/25/22 10:00 Procedures Performed Cervical Ripening Pitocin Induction of Labor Primary LTCS Vitals Last Vital Signs Temp 98.4 F 03/31/22 10:00 Pulse 103 H 03/31/22 10:00 Resp 18 03/31/22 10:00 BP 114/60 03/31/22 10:00 Pulse Ox 98 03/31/22 10:00 O2 Del Method 03/31/22 10:00 Discharge Plan Discharge Patient Disposition: Home Condition: Stable Prescriptions: No Action prenat.vits,calin,hyn-qmxa-zornu Tablet 1 tab PO DAILY (DME) pen needle, diabetic [Lite Touch Insulin Pen [place]] 31 gauge x 1/4 needle See Rx Instructions .Route Qty: 100 8RF Rx Instructions: As directed (DME) blood-glucose meter [Blood Glucose Monitoring] Kit See Rx Instructions .Route Qty: 1 0RF Rx Instructions: As directed ondansetron HCl 4 mg tablet 4 mg PO Q6H PRN (Reason: nausea and vomiting) Qty: 30 2RF (DME) Blood Glucose Test Strip See Rx Instructions .Route Qty: 120 12RF Rx Instructions: As directed (DME) lancets [Advanced Travel Lancets] 30 gauge misc See Rx Instructions .Route Qty: 120 12RF Rx Instructions: As directed Humulin R Regular U-100 Insuln 100 unit/mL solution 20 - 22 unit SUBCUT BID Rx Instructions: 20 units of regular insulin before breakfast and 22 units before dinner Novolin N NPH U-100 Insulin 100 unit/mL suspension 30 unit SUBCUT .qhs Rx Instructions: 30 units prior to bedtime Novolin N NPH U-100 Insulin 100 unit/mL suspension 60 unit SUBCUT QAM Rx Instructions: 60 units prior to breakfast Discharge Orders: Discharge Order (Routine); Ordered 03/31/22 Ordered By: Tatum Gleason Discharge Diet: Regular Discharge Activity: Limit activity as instructed Patient Instructions: Depression (DC), Bleeding (DC), Preeclampsia and Eclampsia After Delivery (GEN), OB WHC, OB Discharge Report, OB Food/Drug Interaction Guide, Opioid Safety, OB Home Care Assessment: s/p Primary c/s GDM- resolving Plan of Treatment: DC to home, may room in if baby is no discharged. F/U 2 wk with OB Continue to take BS q am and record. Hold Insulin for now. Discharge Attestations THORACIC MEDICINE PHYSICIAN Time Spent in Discharge Care*: less than 30 min Coding Level of Care Code Acute Manual Lathe Operator for Chg Fwd Diagnoses Delivery by section
[2022-03-31 13:14] LABS: Glucose Point of Care 102 mg/dL (70-110)
--- NOTE | 2022-03-31 13:21 | PC.NURSE ---
Accucheck done Pt glucose 102 mg/dl. Reported to Dr. Gleason. Pt. to continue to do fasting blood sugars each morning, but hold the insulin. Pt aware to continue with fasting blood sugars every morning and record them. Pt not to give self any insulin (hold) for now.
[2022-03-31 16:47] VITALS: BP 118/79; PULSE 99; RESP 18; TEMP 36.7; O2SAT 98
[2022-03-31 16:50] VITALS: BP 118/79; PULSE 99; RESP 17; TEMP 36.7; O2SAT 98
== END 2022-03-31 16:50 | disposition home or self-care (01) | DRG 788 ==
LOC: OBGYN 18:55 → OPOB 03-26 07:27
PROVIDERS: Obstetrics & Gynecology; Admitting Provider Obstetrics & Gynecology; Visit Provider Obstetrics & Gynecology
PROC: 10D00Z1 Extraction of Products of Conception, Low, Open Approach (ICD-10-PCS; CPT 59514; principal; 2022-03-29 00:30)
DX: O41.03X0 Oligohydramnios, third trimester, not applicable or unspecified (principal); O24.424 Gestational diabetes mellitus in childbirth, insulin controlled; O62.2 Other uterine inertia; O62.8 Other abnormalities of forces of labor; O99.214 Obesity complicating childbirth; E66.01 Morbid (severe) obesity due to excess calories; Z37.0 Single live birth; Z3A.37 37 weeks gestation of pregnancy
CPT/HCPCS: 12345; 36415; 36416; 51702; 59025; 80306; 81000; 82962; 83986; 84112; 85025; 85027; 96372; 96374; 96376; 98960; 99211; J0690; J1170; J1815; J1885; J2210; J2405; J2590; J2765; J2795; J3010; J3490; J7030; J7040; J7120; J7121

== ENCOUNTER 2022-04-05 21:11 | Observation (INO) | payer BC, MEDICAID, SELFPAY ==
[2022-04-05 21:30] VITALS: PULSE 118; RESP 18; TEMP 37.4; O2SAT 96
[2022-04-05 21:40] VITALS: RESP 28
[2022-04-05] MEDS: fentaNYL 50 mcg/mL INJ 2mL 100 MCG IVP ×2 (21:40→22:53)
[2022-04-05] MEDS: ondansetron 2 mg/ML SDV 2 mL 4 MG IVP ×2 (21:40→23:20)
[2022-04-05 21:46] LABS: Basophils # 0.1 10^3/uL (0.0-0.1); Basophils % 0.4 %; Eosinophils # 0.3 10^3/uL (0.0-0.8); Hematocrit 30.5 % (37.0-47.0); Hemoglobin 9.7 g/dL (11.5-15.3); Lymphocytes # 3.2 10^3/uL (0.8-4.8); Lymphocytes % 12.8 %; Mean Corpuscular HGB Conc 31.8 g/dL (30.0-36.0); Mean Corpuscular Hemoglobin 28.7 pg (28.0-34.0); Mean Corpuscular Volume 90.2 fl (81-99); Mean Platelet Volume 8.8 fL (7.4-10.4); Monocytes # 1.7 10^3/uL (0.2-0.9); Monocytes % 6.8 %; Neutrophils # 19.22 10^3/uL (1.8-7.7); Neutrophils % 77.4 %; Nucleated Red Blood Cells % 0 %; Platelet Count 636 10^3/cmm (130-400); Red Blood Count 3.38 10^6/uL (4.1-5.3); Red Cell Distribution Width 13.7 % (12.1-15.1); White Blood Count 24.9 10^3/uL (4.0-10.0)
[2022-04-05] MEDS: sodium chloride 0.9% 1,000 ML 999 ML IV (21:47)
[2022-04-05 22:04] LABS: Alanine Aminotransferase 26 U/L (0-33); Albumin Level 3.6 g/dL (3.5-5.2); Alkaline Phosphatase 86 U/L (35-105); Aspartate Amino Transferase 18 U/L (0-32); Blood Urea Nitrogen 9 mg/dL (6-20); Calcium 9.1 mg/dL (8.5-10.5); Carbon Dioxide 18 mmol/L (22-29); Chloride 103 mmol/L (98-107); Globulin 3.9 g/dL (1.3-4.6); Glomerular Filtration Rate 88.9 mL/min (90-130); Glucose 155 mg/dL (65-115); Lipase 24 U/L (13-60); Osmolality Calculated 292 mOsm/kg (285-295); Sodium 140 mmol/L (136-145); Total Bilirubin 0.2 mg/dL (0.15-1.2); Total Protein 7.5 g/dL (6.6-8.7)
--- NOTE | 2022-04-05 22:08 | CTR_ITS ---
PROCEDURE INFORMATION: Exam: CT Abdomen And Pelvis With Contrast Exam date and time: 04/05/2022 10:31 PM Age: 22 years old Clinical indication: Abdominal pain; Acute; Prior surgery; Surgery date: 3-7 days post-operative; Surgery type: ; Additional info: Ruq pain TECHNIQUE: Imaging protocol: Computed tomography of the abdomen and pelvis with contrast. Radiation optimization: All CT scans at this facility use at least one of these dose optimization techniques: automated exposure control; mA and/or kV adjustment per patient size (includes targeted exams where dose is matched to clinical indication); or iterative reconstruction. Contrast material: OMNI 350; Contrast volume: 100 ml; Contrast route: INTRAVENOUS (IV); COMPARISON: US abdomen complete* [id number] 11/02/2021 4:54 PM RADIATION DOSE METRICS: Total DLP (mGy-cm): 2804.31 FINDINGS: Liver: Normal. No mass. Gallbladder and bile ducts: Normal. No calcified stones. No ductal dilation. Pancreas: Normal. No ductal dilation. Spleen: Normal. No splenomegaly. Adrenal glands: Normal. No mass. Kidneys and ureters: Normal. No hydronephrosis. Stomach and bowel: Unremarkable. No obstruction. No mucosal thickening. Appendix: No evidence of appendicitis. Intraperitoneal space: Unremarkable. No free air. No significant fluid collection. Vasculature: Unremarkable. No abdominal aortic aneurysm. Lymph nodes: Unremarkable. No enlarged lymph nodes. Urinary bladder: Unremarkable as visualized. Reproductive: 14 mm collection of fluid in the lower abdominal wall subcutaneous fat with air, likely reflecting postsurgical fluid related to provided history of , infection of the fluid is not excluded based on CT, please correlate clinically. Bones/joints: Left femoral head sclerotic bone island appears nonaggressive. Soft tissues: Unremarkable. CT/CT abdomen pelvis w con* [id number] IMPRESSION: 14 mm collection of fluid in the lower abdominal wall subcutaneous fat with air, likely reflecting postsurgical fluid related to provided history of , infection of the fluid is not excluded based on CT, please correlate clinically.
[2022-04-05] MEDS: haloperidol inj 5 mg/mL INJ 1 mL 3 MG IVP (22:11)
[2022-04-05] MEDS: iohexol 350 mg/mL 500 mL Btl (per mL) IV (22:28)
[2022-04-05 22:53] VITALS: RESP 20
--- NOTE | 2022-04-05 22:56 | ED_ITS ---
HPI - Abdominal Pain General: Chief Complaint: Abdominal Pain Stated Complaint: abd pain, N/V, 03/30/23 Time Seen by Provider: 04/05/22 21:36 Source: patient and family History of Present Illness: 22-year-old female who is by 1 week prior. She presents with sudden onset of intense right upper quadrant pain radiating into her right lower quadrant while sitting down to dinner tonight. She did not have any significant pain yesterday. She denies fever. She vomited at home. She broke out into a sweat. The pain is severe. MD elicited complaint: abdominal pain Pertinent past history: other Onset (ago): hour(s) Pain Consistency: constant Location: RUQ Quality: stabbing and aching Radiation: RLQ Migration to: no migration Exacerbating factors: movement Relieving factors: nothing Associated Symptoms: Reports nausea and vomiting; Denies bloating, change in bowel habits, change in stool character, dysuria, fever(s), hematuria and hematemesis Review of Systems Const: Denies: fever(s) ENMT: Denies: throat pain Card: Denies: chest pain or palpitations Resp: Denies: dyspnea, productive cough or non-productive cough GI: Reports: nausea and vomiting; Denies: hematemesis, bloating, change in bowel habits or change in stool character : Denies: dysuria or hematuria Musc: Reports: back pain Skin/Breast: Denies: rash Neuro: Denies: headache(s) PFSH ED PFSH: Medical History No pertinent past medical history neghx: htn,dm,thyroid,dvt/pe PCP: [facility] Surgical History No pertinent past surgical history Family History Family/Other Diabetes Paternal Aunt x5 Thyroid disease Paternal Aunt x5 Father Hypertension Denies family history of Colon cancer Ovarian cancer Heart disease Hypercholesteremia Breast cancer Uterine cancer Stroke Social History Smoking and tobacco status: never smoked Physical Exam Const: GENERAL APPEARANCE: cooperative, in distress and ill appearing HENMT: COMMON NORMALS: normocephalic, atraumatic and Normal external nose present HEAD & SCALP: normocephalic and atraumatic FACE & SINUS: normal facial exam and face symmetric NOSE: Normal external nose present Eye: COMMON NORMALS: Equal, round and reactive pupils present and EOMs intact bilaterally PUPIL: Yes Equal, round and reactive pupils present Neck/C-Spine: GENERAL: Yes trachea midline Chest: CHEST: Yes Symmetrical chest wall rise Resp: COMMON NORMALS: normal respiratory effort, No retractions, No use of accessory muscles and clear to auscultation bilaterally AUSCULTATION: clear to auscultation bilaterally Cardio: COMMON NORMALS: regular rate and regular rhythm RATE: regular rate RHYTHM: regular rhythm GI: COMMON NORMALS: Normal to inspection, nondistended, normoactive bowel sounds present PALPATION: Yes Tenderness to palpation present (GI) Details: RLQ and RUQ : BLADDER/KIDNEY EXAM: Yes CVA tenderness on the right Back/Pelvis: GENERAL BACK: Yes CVA tenderness Extremity: COMMON NORMALS: no pedal edema Neuro: MERI COMA SCALE: document GCS findings Meri coma scale eye opening: Spontaneous [place] coma scale verbal response: Orientated [place] coma scale motor response: Obey commands [place] coma scale total score: 15 SENSORY EXAM: Yes extremities (intact) Psych: COMMON NORMALS: speech normal SPEECH: Yes normal speech Skin: COMMON NORMALS: no rashes or lesions noted GENERAL SKIN EXAM: no rashes or lesions noted Course Consultations: Consultation #1: albino Vital Signs: Vital signs: Vital Signs Temperature 97.9 F 04/06/22 03:05 Pulse Rate 82 04/06/22 03:55 Respiratory Rate 17 04/06/22 03:11 Blood Pressure 137/75 04/06/22 03:30 Pulse Oximetry 96 04/06/22 03:55 Oxygen Delivery Me thod 04/06/22 03:34 Oxygen Flow Rate 2 04/06/22 02:05 MDM - Abdominal Pain Medical Decision Making Patient has no overt fever. She is tachycardic and hypertensive on arrival. She is in obvious pain and diaphoretic. Her white blood cell count is 25. Some mild increase from her hospitalization. Her hemoglobin is 9.7 which is stable. Her bicarbonate is 18. Her pain has been hard to control. CT reveals abdominal incisional hematoma. Pelvic ultrasound reveals the same. No evidence of endometritis. Will admit for pain control and hemoglobin monitoring. Lab Data : 04/05/22 21:41 04/05/22 21:41 Labs/Radiology: Radiology Impressions Abdomen/Pelvis CT 04/05/22 22:08 IMPRESSION: 14 mm collection of fluid in the lower abdominal wall subcutaneous fat with air, likely reflecting postsurgical fluid related to provided history of , infection of the fluid is not excluded based on CT, please correlate clinically. Pelvis Ultrasound 04/06/22 00:14 IMPRESSION: 1. Anterior abdominal wall subcutaneous hematoma/seroma measuring up to 10 cm as seen on comparison CT scan, likely related to history of . 2. appearance of the uterus measuring 14 x 6 x 9 cm. Laboratory Results WBC 24.9 10^3/uL (4.0-10.0) H 04/05/22 21:41 RBC 3.38 10^6/uL (4.1-5.3) L 04/05/22 21:41 Hgb 9.7 g/dL (11.5-15.3) L 04/05/22 21:41 Hct 30.5 % (37.0-47.0) L 04/05/22 21:41 MCV 90.2 fl (81-99) 04/05/22 21:41 MCH 28.7 pg (28.0-34.0) 04/05/22 21:41 MCHC 31.8 g/dL (30.0-36.0) 04/05/22 21:41 RDW 13.7 % (12.1-15.1) 04/05/22 21:41 Plt Count 636 10^3/cmm (130-400) H 04/05/22 21:41 MPV 8.8 fL (7.4-10.4) 04/05/22 21:41 Neut % (Auto) 77.4 % 04/05/22 21:41 Lymph % (Auto) 12.8 % 04/05/22 21:41 [place] % (Auto) 6.8 % 04/05/22 21:41 Eos % (Auto) 1.0 % 04/05/22 21:41 Baso % (Auto) 0.4 % 04/05/22 21:41 Neut # (Auto) 19.22 10^3/uL (1.8-7.7) H 04/05/22 21:41 Lymph # (Auto) 3.2 10^3/uL (0.8-4.8) 04/05/22 21:41 [place] # (Auto) 1.7 10^3/uL (0.2-0.9) H 04/05/22 21:41 Eos # (Auto) 0.3 10^3/uL (0.0-0.8) 04/05/22 21:41 Baso # (Auto) 0.1 10^3/uL (0.0-0.1) 04/05/22 21:41 Nucleated RBC % (auto) 0 % 04/05/22 21:41 Nucleated RBCs # 0.0 /100WBC 04/05/22 21:41 Sodium 140 mmol/L (136-145) 04/05/22 21:41 Potassium 4.0 mmol/L (3.5-5.1) 04/05/22 21:41 Chloride 103 mmol/L (98-107) 04/05/22 21:41 Carbon Dioxide 18 mmol/L (22-29) L 04/05/22 21:41 Anion Gap 23.0 (5-19) H 04/05/22 21:41 BUN 9 mg/dL (6-20) 04/05/22 21:41 Creatinine 0.8 mg/dL (0.5-0.9) 04/05/22 21:41 GFR Calculation 88.9 mL/min (90-130) L 04/05/22 21:41 Glucose 155 mg/dL (65-115) H 04/05/22 21:41 Calculated Osmolality 292 mOsm/kg (285-295) 04/05/22 21:41 Calcium 9.1 mg/dL (8.5-10.5) 04/05/22 21:41 Total Bilirubin 0.2 mg/dL (0.15-1.2) 04/05/22 21:41 AST 18 U/L (0-32) 04/05/22 21:41 ALT 26 U/L (0-33) 04/05/22 21:41 Alkaline Phosphatase 86 U/L (35-105) 04/05/22 21:41 Total Protein 7.5 g/dL (6.6-8.7) 04/05/22 21:41 Albumin 3.6 g/dL (3.5-5.2) 04/05/22 21:41 Globulin 3.9 g/dL (1.3-4.6) 04/05/22 21:41 Lipase 24 U/L (13-60) 04/05/22 21:41 Discharge Plan Discharge Patient Disposition: Placed in Observation Admit Provider: Ector Palmer Clinical Impression: Abdominal pain, Postoperative bleeding from incision Coding Level of Care Code ED Intranet Developer for Chg Fwd Exam Comprehensive
[2022-04-05 23:20] VITALS: RESP 24
[2022-04-05] MEDS: HYDROmorphone 1 mg/mL INJ 1 mL IVP (23:20)
[2022-04-05 23:23] VITALS: BP 160/95; PULSE 105; RESP 24; O2SAT 100
[2022-04-06] VITALS (180 sets, daily range): BP systolic 131–197; BP diastolic 68–105; PULSE 65–132; RESP 17–22; TEMP 36.6–37.2; O2SAT 87–100
--- NOTE | 2022-04-06 00:14 | USR_ITS ---
PROCEDURE INFORMATION: Exam: US Nonobstetric Pelvis; Complete Exam date and time: 04/06/2022 12:22 AM Age: 22 years old Clinical indication: Pelvic pain; Prior surgery; Surgery date: 3-7 days post-operative; Surgery type: ; Additional info: Abd pain, leukocytosis, post- 1 week TECHNIQUE: Imaging protocol: Transabdominal pelvic nonobstetric ultrasound. Complete exam. Real time ultrasound with image documentation. COMPARISON: CT abdomen pelvis w con* [id number] 04/05/2022 10:31 PM FINDINGS: Uterus: appearance of the uterus measuring 14 x 6 x 9 cm. Right ovary/adnexa: Ovary is normal. No mass. Normal blood flow. Left ovary/adnexa: Ovary is normal. No mass. Normal blood flow. Intraperitoneal space: Anterior abdominal wall subcutaneous hematoma/seroma measuring up to 10 cm as seen on comparison CT scan. Urinary bladder: Normal. US/US pelvic limited [id number] IMPRESSION: 1. Anterior abdominal wall subcutaneous hematoma/seroma measuring up to 10 cm as seen on comparison CT scan, likely related to history of . 2. appearance of the uterus measuring 14 x 6 x 9 cm.
[2022-04-06] MEDS: HYDROmorphone 1 mg/mL INJ 1 mL IVP ×10 (01:07→23:01)
[2022-04-06] MEDS: haloperidol inj 5 mg/mL INJ 1 mL 3 MG IVP (01:09)
[2022-04-06] MEDS: sodium chloride 0.9% 1,000 ML 100 ML IV ×2 (03:11→15:53)
[2022-04-06] MEDS: clindamycin 600 MG/50 ML PREMIX 100 MG IV ×3 (03:12→18:57)
[2022-04-06 03:25] LABS: Specific Gravity, Urine 1.015 (1.005-1.030); Urine Appearance Hazy (CLEAR); Urine Color Dark Yellow (Yellow); pH Urine 5 (5-7)
[2022-04-06 03:26] LABS: Add Urine Microscopic? YES; Bilirubin Urine Neg (Negative); Blood Urine 3+ (Negative); Glucose Urine UA Norm (Normal); Ketones Urine Negative (Negative); Leukocyte Esterase Urine 1+ (Negative); Nitrate Urine Negative (Negative); Protein Urine 1+ (Negative); Urobilinogen Urine 1 mg/dL (Negative)
[2022-04-06 03:28] LABS: WBC Urine 40-55 /hpf (0-5)
[2022-04-06 03:29] LABS: Add Urine Culture? Yes; Bacteria Urine 1+ /hpf
[2022-04-06 05:31] LABS: Basophils # 0.1 10^3/uL (0.0-0.1); Basophils % 0.2 %; Hematocrit 24.9 % (37.0-47.0); Hemoglobin 8.1 g/dL (11.5-15.3); Lymphocytes % 9.1 %; Mean Corpuscular HGB Conc 32.5 g/dL (30.0-36.0); Mean Corpuscular Hemoglobin 28.8 pg (28.0-34.0); Mean Corpuscular Volume 88.6 fl (81-99); Mean Platelet Volume 8.6 fL (7.4-10.4); Monocytes # 1.5 10^3/uL (0.2-0.9); Monocytes % 6.8 %; Neutrophils # 18.42 10^3/uL (1.8-7.7); Neutrophils % 83.1 %; Nucleated Red Blood Cells % 0 %; Platelet Count 517 10^3/cmm (130-400); Red Blood Count 2.81 10^6/uL (4.1-5.3); Red Cell Distribution Width 13.7 % (12.1-15.1); White Blood Count 22.2 10^3/uL (4.0-10.0)
[2022-04-06 06:24] LABS: Alanine Aminotransferase 21 U/L (0-33); Albumin Level 3.4 g/dL (3.5-5.2); Alkaline Phosphatase 78 U/L (35-105); Aspartate Amino Transferase 15 U/L (0-32); Blood Urea Nitrogen 8 mg/dL (6-20); Calcium 8.6 mg/dL (8.5-10.5); Carbon Dioxide 20 mmol/L (22-29); Chloride 103 mmol/L (98-107); Globulin 2.8 g/dL (1.3-4.6); Glomerular Filtration Rate 123.9 mL/min (90-130); Glucose 134 mg/dL (65-115); Osmolality Calculated 278 mOsm/kg (285-295); Sodium 134 mmol/L (136-145); Total Bilirubin 0.2 mg/dL (0.15-1.2); Total Protein 6.2 g/dL (6.6-8.7)
[2022-04-06] MEDS: docusate sodium 100 mg Capsule PO (10:38)
[2022-04-06] MEDS: simethicone 80 mg Chew PO (10:38)
[2022-04-06 16:10] LABS: Urine Creatinine 169 mg/dL (28-217)
[2022-04-06 16:11] LABS: UPRO/UCREAT Ratio 0.41 mg/mg CR; Urine Protein Random 69 mg/dL
[2022-04-06] MEDS: NIFEdipine ER (24 hr) 30 mg Tablet PO (16:42)
[2022-04-06 21:03] LABS: Glucose Point of Care 155 mg/dL (70-110)
[2022-04-06] MEDS: insulin lispro 100 unit/1 mL SUBCUT (21:10)
[2022-04-06] MEDS: labetalol 5 mg/mL SDV 20mL 20 MG IVP (23:40)
[2022-04-07] VITALS (21 sets, daily range): BP systolic 130–165; BP diastolic 66–93; PULSE 77–101; RESP 17–18; TEMP 36.8
[2022-04-07] MEDS: HYDROmorphone 1 mg/mL INJ 1 mL IVP ×2 (01:59→05:17)
[2022-04-07] MEDS: sodium chloride 0.9% 1,000 ML 100 ML IV (02:36)
[2022-04-07] MEDS: clindamycin 600 MG/50 ML PREMIX 100 MG IV (03:20)
[2022-04-07 05:19] LABS: Basophils # 0.1 10^3/uL (0.0-0.1); Basophils % 0.3 %; Eosinophils # 0.3 10^3/uL (0.0-0.8); Eosinophils % 1.6 %; Hematocrit 26.8 % (37.0-47.0); Hemoglobin 8.6 g/dL (11.5-15.3); Lymphocytes % 16.2 %; Mean Corpuscular HGB Conc 32.1 g/dL (30.0-36.0); Mean Corpuscular Hemoglobin 28.4 pg (28.0-34.0); Mean Corpuscular Volume 88.4 fl (81-99); Mean Platelet Volume 8.6 fL (7.4-10.4); Monocytes # 1.4 10^3/uL (0.2-0.9); Monocytes % 7.5 %; Neutrophils % 73.8 %; Nucleated Red Blood Cells % 0 %; Platelet Count 575 10^3/cmm (130-400); Red Blood Count 3.03 10^6/uL (4.1-5.3); Red Cell Distribution Width 13.9 % (12.1-15.1); White Blood Count 18.4 10^3/uL (4.0-10.0)
[2022-04-07] MEDS: docusate sodium 100 mg Capsule PO (08:44)
[2022-04-07] MEDS: NIFEdipine ER (24 hr) 30 mg Tablet PO (08:44)
[2022-04-07] MEDS: simethicone 80 mg Chew PO (08:44)
[2022-04-07] MEDS: acetaminophen 500 mg Tablet 1000 MG PO (09:12)
--- NOTE | 2022-04-07 09:52 | PM.SDS ---
Short Stay Summary Providers Date of Admit/Discharge: 04/07/22 Attending Provider: Ector Palmer MD Chief Complaint: abd pain HPI History of Present Illness Kay Mendez is a 22 year old female status post primary low transverse delivery due to failure to progress 1 week ago. Came to the emergency room with abdominal pain. Upon evaluation in the emergency room CT scan of the hematoma, and elevated white count. She was admitted to the hospital for pain management and observation. 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 She was advised on limited physical activity and limited weight lifting to a maximum of 10 pounds. Review of Systems Const: Denies: fever(s) ENMT: Denies: throat pain Card: Denies: chest pain or palpitations Resp: Denies: dyspnea, productive cough or non-productive cough GI: Denies: nausea, vomiting, hematemesis, bloating, change in bowel habits or change in stool character : Denies: dysuria or hematuria Musc: Reports: back pain Skin/Breast: Denies: rash Neuro: Denies: headache(s) Home Meds/Allergies Home Medications and Allergies Allergies Allergy/AdvReac Type Severity Reaction Status Date / Time Penicillins Allergy Unknown Verified 04/06/22 03:53 PFSH Acute PFSH: Medical History No pertinent past medical history neghx: htn,dm,thyroid,dvt/pe PCP: [place] Surgical History No pertinent past surgical history Family History Family/Other Diabetes Paternal Aunt x5 Thyroid disease Paternal Aunt x5 Father Hypertension Denies family history of Colon cancer Ovarian cancer Heart disease Hypercholesteremia Breast cancer Uterine cancer Stroke Social History Smoking and tobacco status: never smoked Vitals/I&O/Wt Last Vital Signs Temp 99.0 F 04/06/22 23:07 Pulse 96 04/07/22 09:31 Resp 18 04/07/22 05:17 BP 146/82 04/07/22 09:31 Pulse Ox 96 04/06/22 12:03 O2 Del Method 04/06/22 03:34 O2 Flow Rate 2 04/06/22 02:05 04/06/22 04/07/22 04/07/22 23:59 06:59 14:59 Intake Total Balance Physical Exam Narrative: GA: Alert and oriented ?3. HEENT: WNL. Heart: Regular rate and rhythm. Lungs: Clear to auscultation bilaterally. Abdomen: Bowel sounds present, Uterine fundus below umbilicus. No Fundal Tenderness, minimal tenderness, incision clean and dry, no redness, pain or edema. 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 Extremities: No edema, no cyanosis, no calves pain. Hospital Course Hospital Course Mrs. Jackson 22-year-old female is status post primary low transverse delivery 1 week and a half ago. Came to the emergency room with abdominal pain. Upon evaluation hematoma was noted. She was admitted for pain management and observation. She had been hemodynamically stable. She did show to have elevated blood pressure and she was started on nifedipine 30 mg extended release. She will subserved to have a few elevated blood pressures in the severe range however this happened during patient experiencing pain. Pain has improved dramatically. She is ambulating without difficulty. SSS Data Data Completed and Pending: Completed Studies During Hospitalization Category Date Time Status CT abdomen pelvis w con* [id number] Urge nt Cat Scan 04/05/22 22:08 Completed US pelvic limited [id number] Stat Ultrasound 04/06/22 00:14 Completed Pending at discharge Category Date Time Status Urine Culture Sta t Lab 04/06/22 02:45 Received Diagnoses at Discharge Discharge Diagnosis (1) Hypertension, condition or complication: Status: Acute (2) Abdominal pain: Details from hospital stay: Abdominal pain has resolved. Status: Acute Discharge Plan Discharge Patient Disposition: Home Condition: Stable Prescriptions: New hydrocodone-acetaminophen 5-325 mg tablet 1 tab PO Q4H PRN (Reason: pain) Qty: 30 0RF docusate sodium [Colace] 100 mg capsule 100 mg PO BID Qty: 60 0RF ferrous sulfate [Iron (ferrous sulfate)] 325 mg (65 mg iron) tablet 325 mg PO BID Qty: 60 0RF nifedipine 30 mg tablet extended release 30 mg PO DAILY Qty: 30 0RF acetaminophen 325 mg capsule 325 mg PO Q4H PRN (Reason: fever or pain) Qty: 60 0RF ibuprofen 800 mg tablet 800 mg PO TID PRN (Reason: pain) Qty: 60 0RF Discharge Orders: Discharge Order (Routine); Ordered 04/07/22 Ordered By: Ector Palmer Referrals: Kanwal Casiano MD [Physician] - 1 week Discharge Diet: Advance as tolerated Discharge Activity: Limit activity as instructed Patient Instructions: Opioid Safety Activity Restrictions/Additional Instructions: 1. Please call [facility] on next working day to make your post-operative appointment in 1 weeks. 2. Please stay home until you come back to the clinic on first post-operative check up. 3. Please follow instructions on your medications CAREFULLY. 4. If you have abdominal incision, do not cover it unless dressing is necessary because of drainage. OK to shower, but avoid bath. Leave steri-strips until they fall off. If they are still on one week after surgery, you may remove them. 5. If you had vaginal surgery or vaginal repair, Dr. Palmer may instruct you to take SITZ bath. 6. Yellow, blood tinged odorous vaginal discharge is usually normal after hysterectomy or vaginal surgeries. 7. No sexual intercourse, tampons, or douches until you are completely released from the post-operative care. 8. Avoid constipation by eating right and maybe using some Metamucil or Milk of Magnesia. 9. All prescription refills are given during the working hours. Please do no wait till it runs out. Call the clinic at [phone] before your medication runs out. The clinic will get in touch with your doctor to prescribe medications if necessary. 10. Please remain within 40 mile radius from our hospital because emergencies do happen now and then during the post-operative period. 11. If you have stairs at home, take one step at a time slowly and minimize the number of trips. It helps to stay in one floor for the next few days. No lifting except what you can lift by one hand until you are released from the post-operative care. 12. Driving is discouraged until you are well healed. It may be 3-4 weeks before you feel strong enough to drive. You should be able to turn and look through the rear window without pain and you should be able to push the brake pedal very hard without pain before you drive. No fast rules, but SAFETY should be your primary concern. DO NOT drive if you are on sedating medications such as narcotics. 13. Call the clinic (during working hours) to make urgent appointment or go to the Emergency room, if any of the following occurs: i. Vaginal bleeding becomes heavy, more than a period. ii. Incision becomes red and sore, or drains pus. iii. Your temperature is over 100.4 or you have chill. iv. IV site becomes red and swollen (a little ``knot?? is usually OK) v. Persistent nausea and vomiting vi. Persistent constipation or diarrhea vii. Rash or allergic reaction to medications. Attestations Medical Necessity Statement*: In my professional opinion per admitting diagnosis Time Spent in Patient Care*: greater than 30 min Quality Metrics Clinical Quality Measures: [ No reported AMI, CVA or VTE this stay] Coding Level of Care Code Acute Digital Strategist Senior Manager for Chg Fwd Diagnoses Hypertension, condition or complication O16.5 Abdominal pain R10.9
== END 2022-04-07 11:05 | disposition home or self-care (01) ==
LOC: ER 23:00 → OBGYN 04-06 02:31
PROVIDERS: Nurse Practitioner Family; Admitting Provider Obstetrics & Gynecology; Emergency Provider Emergency Medicine; Visit Provider Obstetrics & Gynecology
DX: R10.11 Right upper quadrant pain (principal); Z48.89 Encounter for other specified surgical aftercare
CPT/HCPCS: 36415; 36416; 74177; 76857; 80053; 81001; 82570; 82962; 83690; 84156; 85025; 87086; 96365; 96372; 96375; 96376; 99285; G0378; J1170; J1630; J1815; J2270; J2405; J3010; J3490; J7030; Q9967

== ENCOUNTER 2022-04-19 14:18 | Emergency (ER) | payer BC, MEDICAID, SELFPAY ==
[2022-04-19] VITALS (24 sets, daily range): BP systolic 122–143; BP diastolic 57–91; PULSE 74–107; RESP 17–33; TEMP 36.4; O2SAT 95–100; BMI 42.5
--- NOTE | 2022-04-19 14:34 | ED_ITS ---
HPI - SOB/Dyspnea General: Chief Complaint: Shortness of Breath/Dyspnea Stated Complaint: cp, SOB sent PCP Time Seen by Provider: 04/19/22 14:34 History of Present Illness: HPI Narrative: Ms. Reed is a 22-year-old approximately 3 weeks presenting to the emergency department due to shortness of breath and chest pain. Back pain has been going on for about a week and is upper. Sharp and stabbing in nature worse with breathing. Denies known specific provoking factor. Also has developed increased chest pain worse in the left anterior chest and shortness of breath today. Intensity symptoms is severe. Course has worsened. No other specific changes in health, exacerbating, or alleviating factors identified. Patient is breast-feeding. Onset (ago): day(s) Context: other Timing: progressively worsening Severity: severe Relieving factors: nothing Associated symptoms: Reports chest pain and other Review of Systems General: Reports: 10 or more systems reviewed and unremarkable except in HPI and below Card: Reports: chest pain PFS ED PFSH: Medical History No pertinent past medical history neghx: htn,dm,thyroid,dvt/pe PCP: [facility] Surgical History No pertinent past surgical history Family History Family/Other Diabetes Paternal Aunt x5 Thyroid disease Paternal Aunt x5 Father Hypertension Denies family history of Colon cancer Ovarian cancer Heart disease Hypercholesteremia Breast cancer Uterine cancer Stroke Social History Smoking and tobacco status: never smoked Physical Exam Const: COMMON NORMALS: alert GENERAL APPEARANCE: cooperative, well developed and in distress (Due to pain) HENMT: COMMON NORMALS: normocephalic and atraumatic HEAD & SCALP: normocephalic and atraumatic THROAT: posterior oropharynx normal Eye: COMMON NORMALS: conjunctivae normal CONJUNCTIVA: Yes conjunctivae normal SCLERA: sclerae normal Neck/C-Spine: COMMON NORMALS: supple GENERAL: Yes trachea midline Resp: COMMON NORMALS: clear to auscultation bilaterally EFFORT & INSPECTION: Yes able to speak in complete sentences and Yes tachypneic AUSCULTATION: clear to auscultation bilaterally Cardio: COMMON NORMALS: regular rhythm RATE: tachycardic RHYTHM: regular rhythm GI: COMMON NORMALS: Soft to palpation PALPATION: Yes Soft to palpation, Yes Tenderness to palpation present (GI), No Guarding due to palpation present (GI) and No Rigid due to palpation Extremity: GENERAL: Yes normal exam except as noted and No edema Neuro: COMMON NORMALS: moves all extremities SENSORIUM/ORIENTATION: Yes alert and No Orientation impaired Psych: COMMON NORMALS: mental status grossly normal and Normal thought process present THOUGHT PROCESS: Normal thought process present Course Vital Signs: Vital signs: Vital Signs Temperature 97.6 F 04/19/22 14:23 Pulse Rate 104 H 04/19/22 19:45 Respiratory Rate 18 04/19/22 19:45 Blood Pressure 132/57 04/19/22 19:00 Pulse Oximetry 95 04/19/22 19:45 Oxygen Delivery Me thod 04/19/22 14:23 MDM - SOB/Dyspnea Medical Decision Making 22-year-old lady with history of obesity and low transverse 3 weeks ago (03/29/2022) presenting to the emergency department for respiratory distress with back pain and chest pain. Initial exam reveals mildly ill-appearing patient though she does appear to be hyperventilating. Lung sounds are clear and oxygen saturation is adequate. Chest x-ray obtained with no evidence of pneumothorax or obvious other cause of patient's respiratory distress. Labs notable for mild leukocytosis 11.1, normal hemoglobin. Metabolic panel with normal electrolytes. Abnormal hepatic panel with T bili 2.9, AST 406, ALT 352, alk phos 213. Lipase is normal. Negative COVID. Given recent state as well as respiratory distress with no clear etiology a CTA of the chest was obtained. CTA negative for pulmonary embolism. A few nodular groundglass opacities are scattered throughout the lungs which may reflect small airway infectious or inflammatory process. There is an ovoid cystic structure measuring simple fluid in the region of the right adrenal gland measuring 4.6 x 2.9 cm this is incompletely characterized. Given abnormal liver function tests ultrasound was obtained. There is evidence of cholecystitis with gallbladder wall thickening and cholelithiasis with gallbladder sludge. Patient symptoms are somewhat atypical for cholecystitis though this is likely at least partially responsible for patient symptoms. Certainly refered pain is common. The patient does not have evidence of hemolysis with no evidence of ble eding on exam or history. She denies rash or petechiae. Platelets are not low and hemoglobin has improved from prior and is within normal range. Additionally the patient is enrrique hypertensive aside from mild elevation associated with pain. No reported nausea/vomiting or edema. We do not have general surgery coverage and therefore patient requires transfer for surgical evaluation. The patient was graciously accepted by Dr. Hull at [facility], I appreciate the assistance. Patient to be transported by EMS for definitive care. The results of ED evaluation were discussed with the patient including plan for transfer due to requirement for level of care not available if discharged to prevent significant worsening/deterioration. Patient agreeable with plan. I also discussed that patient will likely require multiple days of hospitalization for antibiotics and optimization of inflammation prior to possible surgical intervention. Medical Records I reviewed the patient's medical records. Lab Data I reviewed the patient's lab results. 04/19/22 14:41 04/19/22 14:41 Labs/Radiology: Radiology Impressions Chest CTA 04/19/22 14:57 IMPRESSION: 1. Negative for pulmonary embolism. 2. A few nodular ground-glass opacities are scattered throughout the lungs which may reflect a small airway infectious or inflammatory process. 3. Ovoid cystic appearing structure measuring simple fluid in the region of the right adrenal gland measuring 4.6 x 2.9 cm. This is incompletely characterized on current study. This could reflect an evolving adrenal hematoma, presumably from adrenal vein thrombosis or anticoagulation given recent hypercoagulable state. This can be confirmed with adrenal protocol abdominal MRI as clinically indicated. Chest X-Ray 04/19/22 14:57 IMPRESSION: 1. No acute cardiopulmonary process. Gallbladder Ultrasound 04/19/22 15:38 IMPRESSION: 1. Cholelithiasis with sonographic findings suspicious for acute cholecystitis. 2. Hepatic steatosis with hepatomegaly. Laboratory Results WBC 11.1 10^3/uL (4.0-10.0) H 04/19/22 14:41 RBC 4.20 10^6/uL (4.1-5.3) 04/19/22 14:41 Hgb 11.8 g/dL (11.5-15.3) 04/19/22 14:41 Hct 36.6 % (37.0-47.0) L 04/19/22 14:41 MCV 87.1 fl (81-99) 04/19/22 14:41 MCH 28.1 pg (28.0-34.0) 04/19/22 14:41 MCHC 32.2 g/dL (30.0-36.0) 04/19/22 14:41 RDW 14.0 % (12.1-15.1) 04/19/22 14:41 Plt Count 607 10^3/cmm (130-400) H 04/19/22 14:41 MPV 9.8 fL (7.4-10.4) 04/19/22 14:41 Neut % (Auto) 76.8 % 04/19/22 14:41 Lymph % (Auto) 15.7 % 04/19/22 14:41 [place] % (Auto) 5.9 % 04/19/22 14:41 Eos % (Auto) 1.0 % 04/19/22 14:41 Baso % (Auto) 0.3 % 04/19/22 14:41 Neut # (Auto) 8.54 10^3/uL (1.8-7.7) H 04/19/22 14:41 Lymph # (Auto) 1.8 10^3/uL (0.8-4.8) 04/19/22 14:41 [place] # (Auto) 0.7 10^3/uL (0.2-0.9) 04/19/22 14:41 Eos # (Auto) 0.1 10^3/uL (0.0-0.8) 04/19/22 14:41 Baso # (Auto) 0.0 10^3/uL (0.0-0.1) 04/19/22 14:41 Nucleated RBC % (auto) 0 % 04/19/22 14:41 Nucleated RBCs # 0.0 /100WBC 04/19/22 14:41 Sodium 137 mmol/L (136-145) 04/19/22 14:41 Potassium 4.4 mmol/L (3.5-5.1) 04/19/22 14:41 Chloride 99 mmol/L (98-107) 04/19/22 14:41 Carbon Dioxide 25 mmol/L (22-29) 04/19/22 14:41 Anion Gap 17.4 (5-19) 04/19/22 14:41 BUN 9 mg/dL (6-20) 04/19/22 14:41 Creatinine 0.6 mg/dL (0.5-0.9) 04/19/22 14:41 GFR Calculation 123.9 mL/min (90-130) 04/19/22 14:41 Glucose 160 mg/dL (65-115) H 04/19/22 14:41 Calculated Osmolality 286 mOsm/kg (285-295) 04/19/22 14:41 Calcium 9.8 mg/dL (8.5-10.5) 04/19/22 14:41 Total Bilirubin 2.9 mg/dL (0.15-1.2) H 04/19/22 14:41 AST 406 U/L (0-32) H 04/19/22 14:41 ALT 352 U/L (0-33) H 04/19/22 14:41 Alkaline Phosphatase 213 U/L (35-105) H 04/19/22 14:41 Troponin T Baseline 6 ng/L (0-10) 04/19/22 14:41 Troponin T 120 Minute 6.00 ng/L (0-10) 04/19/22 16:57 Delta Troponin T 0 ABS# (0-10) 04/19/22 16:57 Troponin T Hi Sens 6Hr 6.00 ng/L (0-10) 04/19/22 20:10 Troponin T Hi Sens 6Hr Delta 0 ng/L (0-12) 04/19/22 20:10 NT-Pro-B Natriuret Pep 34 pg/mL (0-125) 04/19/22 14:41 Total Protein 7.9 g/dL (6.6-8.7) 04/19/22 14:41 Albumin 4.2 g/dL (3.5-5.2) 04/19/22 14:41 Globulin 3.7 g/dL (1.3-4.6) 04/19/22 14:41 Lipase 46 U/L (13-60) 04/19/22 14:41 TSH 2.37 uIU/mL (0.27-4.20) 04/19/22 14:41 Coronavirus 229E (PCR) Not detected (NOT DETECT) 04/19/22 17:10 SARS-CoV-2 (PCR) Not detected (NOT DETECT) 04/19/22 17:10 Discharge Plan Discharge Patient Disposition: Xfer Short-Term Hosp Clinical Impression: Acute cholecystitis, Total bilirubin, elevated, Transaminitis, Leukocytosis Condition: Stable Coding Level of Care Code 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
--- NOTE | 2022-04-19 14:48 | ECG_ITS ---
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 Measurements Intervals [place] Rate: 84 P: 41 NC: 155 QRS: 16 QRSD: 90 T: 20 QT: 335 QTc: 396 Interpretive Statements SINUS RHYTHM POSSIBLE RIGHT VENTRICULAR CONDUCTION DELAY [RSR (QR) IN V1/V2] No previous ECG available for comparison Electronically Signed On 04-22-2022 18:26:33 INVENTORY SPECIALIST MANAGER by Trever Castillo M.D. [id number]
--- NOTE | 2022-04-19 14:57 | XR_ITS ---
WS: [id number] Exam: XR chest 1V portable [id number] Date/Time of Exam: 04/19/2022 2:57 PM Reason For Exam: sob No prior. The lungs are clear and fully expanded. Normal cardiomediastinal silhouette. No pleural effusions. Ankit ny elements are intact. XR/XR chest 1V portable [id number] IMPRESSION: 1. No acute cardiopulmonary process.
--- NOTE | 2022-04-19 14:57 | CTR_ITS ---
PROCEDURE INFORMATION: Exam: CTA Chest With Contrast Exam date and time: 04/19/2022 3:30 PM Age: 22 years old Clinical indication: Pain; Chest pressure; Additional info: SOB, 3 wks post , severe chest and back pain TECHNIQUE: Imaging protocol: Computed tomographic angiography of the chest with contrast. 3D rendering (Not supervised by radiologist): MIP and/or 3D reconstructed images were created by the technologist. Radiation optimization: All CT scans at this facility use at least one of these dose optimization techniques: automated exposure control; mA and/or kV adjustment per patient size (includes targeted exams where dose is matched to clinical indication); or iterative reconstruction. Contrast material: OMNI 350; Contrast volume: 95 ml; Contrast route: INTRAVENOUS (IV); COMPARISON: CT abdomen pelvis w con* [id number] 04/05/2022 10:31 PM RADIATION DOSE METRICS: Total DLP (mGy-cm): 505.19 FINDINGS: Pulmonary arteries: Normal. No pulmonary emboli. Aorta: Unremarkable. No aortic aneurysm. No aortic dissection. Lungs: A few nodular ground-glass opacities are scattered throughout the lungs. Pleural spaces: Unremarkable. No pneumothorax. No pleural effusion. Heart: Unremarkable. No cardiomegaly. No pericardial effusion. Lymph nodes: Unremarkable. No enlarged lymph nodes. Adrenal glands: There appears to be a ovoid cystic appearing structure in the region of the right adrenal gland measuring 4.6 x 2.9 cm series 5, image 57. Internal Hounsfield units measure simple fluid. Bones/joints: Unremarkable. No acute fracture. Soft tissues: Unremarkable. CT/CT angio chest PE protcl [id number] IMPRESSION: 1. Negative for pulmonary embolism. 2. A few nodular ground-glass opacities are scattered throughout the lungs which may reflect a small airway infectious or inflammatory process. 3. Ovoid cystic appearing structure measuring simple fluid in the region of the right adrenal gland measuring 4.6 x 2.9 cm. This is incompletely characterized on current study. This could reflect an evolving adrenal hematoma, presumably from adrenal vein thrombosis or anticoagulation given recent hypercoagulable state. This can be confirmed with adrenal protocol abdominal MRI as clinically indicated.
[2022-04-19 15:10] LABS: Basophils % 0.3 %; Eosinophils # 0.1 10^3/uL (0.0-0.8); Hematocrit 36.6 % (37.0-47.0); Hemoglobin 11.8 g/dL (11.5-15.3); Lymphocytes # 1.8 10^3/uL (0.8-4.8); Lymphocytes % 15.7 %; Mean Corpuscular HGB Conc 32.2 g/dL (30.0-36.0); Mean Corpuscular Hemoglobin 28.1 pg (28.0-34.0); Mean Corpuscular Volume 87.1 fl (81-99); Mean Platelet Volume 9.8 fL (7.4-10.4); Monocytes # 0.7 10^3/uL (0.2-0.9); Monocytes % 5.9 %; Neutrophils # 8.54 10^3/uL (1.8-7.7); Neutrophils % 76.8 %; Nucleated Red Blood Cells % 0 %; Platelet Count 607 10^3/cmm (130-400); White Blood Count 11.1 10^3/uL (4.0-10.0)
[2022-04-19] MEDS: sodium chloride 0.9% 1,000 ML 999 ML IV (15:18)
[2022-04-19] MEDS: morphine 4 mg/mL SDV 1 mL IVP ×3 (15:18→18:02)
[2022-04-19] MEDS: iohexol 350 mg/mL 500 mL Btl (per mL) IV (15:34)
[2022-04-19 15:35] LABS: Alanine Aminotransferase 352 U/L (0-33); Albumin Level 4.2 g/dL (3.5-5.2); Alkaline Phosphatase 213 U/L (35-105); Anion Gap 17.4 (5-19); Aspartate Amino Transferase 406 U/L (0-32); Blood Urea Nitrogen 9 mg/dL (6-20); Calcium 9.8 mg/dL (8.5-10.5); Carbon Dioxide 25 mmol/L (22-29); Chloride 99 mmol/L (98-107); Globulin 3.7 g/dL (1.3-4.6); Glomerular Filtration Rate 123.9 mL/min (90-130); Glucose 160 mg/dL (65-115); Lipase 46 U/L (13-60); NT Pro B Type Natriuretic Pept 34 pg/mL (0-125); Osmolality Calculated 286 mOsm/kg (285-295); Potassium 4.4 mmol/L (3.5-5.1); Sodium 137 mmol/L (136-145); Thyroid Stimulating Hormone 2.37 uIU/mL (0.27-4.20); Total Bilirubin 2.9 mg/dL (0.15-1.2); Total Protein 7.9 g/dL (6.6-8.7)
[2022-04-19 15:36] LABS: Troponin(5th) Baseline 6 ng/L (0-10)
--- NOTE | 2022-04-19 15:38 | USR_ITS ---
PROCEDURE INFORMATION: Exam: US Abdomen, Limited; Right Upper Quadrant Exam date and time: 04/19/2022 4:13 PM Age: 22 years old Clinical indication: Abdominal pain; Acute; Additional info: Back pain, elevated t bili, transaminitis TECHNIQUE: Imaging protocol: Real time ultrasound of the abdomen with image documentation. Limited exam focused on the right upper quadrant. COMPARISON: US abdomen complete* [id number] 11/02/2021 4:54 PM FINDINGS: Liver: Right hepatic lobe measures up to 20.8 cm in length. Technologist indicated difficulty in penetrating beyond the liver which would be indicative of diffusely increased echogenicity of the liver parenchyma. Gallbladder: Multiple gallstones and sludge seen within the gallbladder. Thickening of the gallbladder wall up to 5 mm. Biliary ducts: Normal. No stones. No dilation. Pancreas: Poorly visualized secondary to overlying bowel gas. Right kidney: Right kidney measures 10.7 cm in length. No mass. No hydronephrosis. US/US gall bladder [id number] IMPRESSION: 1. Cholelithiasis with sonographic findings suspicious for acute cholecystitis. 2. Hepatic steatosis with hepatomegaly.
--- NOTE | 2022-04-19 17:09 | ECG_ITS ---
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 Measurements Intervals [place] Rate: 74 P: 28 WV: 159 QRS: 24 QRSD: 86 T: 21 QT: 347 QTc: 385 Interpretive Statements SINUS RHYTHM POSSIBLE RIGHT VENTRICULAR CONDUCTION DELAY [RSR (QR) IN V1/V2] MODERATE ST DEPRESSION [0.05+ mV ST DEPRESSION] Compared to ECG 04/19/2022 14:48:05 ST (T wave) deviation now present Electronically Signed On 04-22-2022 18:34:06 POULTRY OFFAL ICER by Trever Castillo M.D. [id number]
[2022-04-19 18:09] LABS: Troponin 5 2HR Delta 0 ABS# (0-10)
[2022-04-19] MEDS: metroNIDAZOLE IV 500 MG/100 ML PREMIX 100 MG IV (18:16)
[2022-04-19] MEDS: HYDROmorphone 1 mg/mL INJ 1 mL 0.5 MG IVP ×3 (18:40→20:25)
[2022-04-19 19:09] LABS: Adenovirus Not Detected (NOT DETECT); Chlamydia Pneumoniae Not Detected (NOT DETECT); Coronavirus 229E,HKU1,NL63,OC4 Not Detected (NOT DETECT); Human Metapneumovirus Not Detected (NOT DETECT); Human Rhinovirus/Enterovirus Not Detected (NOT DETECT); Influenza A Not Detected (NOT DETECT); Influenza A H1 Not Detected (NOT DETECT); Influenza A H1-2009 Not Detected (NOT DETECT); Influenza A H3 Not Detected (NOT DETECT); Influenza B Not Detected (NOT DETECT); Mycoplasma Pneumoniae Not Detected (NOT DETECT); Parainfluenza Virus Type 1 Not Detected (NOT DETECT); Parainfluenza Virus Type 2 Not Detected (NOT DETECT); Parainfluenza Virus Type 3 Not Detected (NOT DETECT); Parainfluenza Virus Type 4 Not Detected (NOT DETECT); Respiratory Syncytial Virus A Not Detected (NOT DETECT); Respiratory Syncytial Virus B Not Detected (NOT DETECT); SARS-COV-2 Not Detected (NOT DETECT)
[2022-04-19] MEDS: ciprofloxacin 400 MG/200 ML PREMIX 200 MG IV (19:30)
[2022-04-19] MEDS: ondansetron 2 mg/ML SDV 2 mL 4 MG IVP (20:25)
[2022-04-19 20:48] LABS: Troponin 5 6HR Delta 0 ng/L (0-12)
--- NOTE | 2022-04-19 21:13 | ECG_ITS ---
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 Measurements Intervals [place] Rate: 79 P: 50 ND: 172 QRS: 21 QRSD: 95 T: 14 QT: 350 QTc: 403 Interpretive Statements SINUS RHYTHM LEFT ATRIAL ENLARGEMENT [-0.15mV P-WAVE IN V1/V2] POSSIBLE RIGHT VENTRICULAR CONDUCTION DELAY [RSR (QR) IN V1/V2] Compared to ECG 04/19/2022 17:09:16 Atrial abnormality now present ST (T wave) deviation no longer present Electronically Signed On 04-22-2022 18:31:29 AGENCY MANAGER by Trever Castillo M.D. [id number]
== END 2022-04-19 21:20 | disposition short-term general hospital (02) ==
PROVIDERS: Emergency Provider Emergency Medicine
DX: K81.0 Acute cholecystitis (principal); R74.01 Elevation of levels of liver transaminase levels; D72.829 Elevated white blood cell count, unspecified; R17 Unspecified jaundice
CPT/HCPCS: 36415; 71045; 71275; 76705; 80053; 83690; 83880; 84443; 84484; 85025; 87040; 87635; 93005; 96365; 96367; 96375; 96376; 99285; J0744; J1170; J2270; J2405; J3490; J7030; Q9967